=== PATIENT | female | born 1945 | race Caucasian/White ===

== ENCOUNTER 2016-11-15 14:53 | Outpatient (RCR) | payer MEDICARE, OTHER ==
[~2016-11-15 14:53] MED LIST: BPR100T PO; FEXO180T PO; GLYB2.5T4 PO; HYDROCHLORIDE PO; LORA10TA7 PO; OMEP-10 PO
[2016-11-15 15:01] LABS: BASOPHILS # (AUTO) 0.1 10^3/uL (0.0-0.1); BASOPHILS % (AUTO) 1 % (0-10); EOSINOPHILS # (AUTO) 0.1 10^3/uL (0.0-0.3); EOSINOPHILS % (AUTO) 2 % (0-10); LYMPHOCYTES # (AUTO) 1.3 X 10^3 (1.0-4.0); LYMPHOCYTES % (AUTO) 20 % (12-44); MEAN CORPUSCULAR HEMOGLOBIN 29 PG (25-34); MEAN CORPUSCULAR HGB CONC 35 G/DL (32-36); MEAN CORPUSCULAR VOLUME 84 FL (80-99); MONOCYTES # (AUTO) 0.4 X 10^3 (0.0-1.0); MONOCYTES % (AUTO) 7 % (0-12); NEUTROPHILS # (AUTO) 4.7 X 10^3 (1.8-7.8); NEUTROPHILS % (AUTO) 71 % (42-75); PLATELET COUNT 276 10^3/uL (130-400); RED BLOOD COUNT 5.15 10^6/uL (4.35-5.85); RED CELL DISTRIBUTION WIDTH 13.7 % (10.0-14.5); WHITE BLOOD COUNT 6.7 10^3/uL (4.3-11.0)
[2016-11-15 15:31] LABS: ALBUMIN 4.3 G/DL (3.2-4.5); BILIRUBIN,TOTAL 0.4 MG/DL (0.1-1.0); CALCIUM 9.6 MG/DL (8.5-10.1); CREATININE SERUM 1.02 MG/DL (0.60-1.30); TOTAL PROTEIN 6.8 G/DL (6.4-8.2)
[2016-11-15 16:56] LABS: THYROID STIMULATING HORMONE 0.6 UIU/ML (0.35-4.94)
== END 2017-02-13 | disposition home or self-care (01) ==
LOC: ONC 14:53
PROVIDERS: ATTEND Internal Medicine Hematology & Oncology
DX: C50.112 Malignant neoplasm of central portion of left female breast (principal); M85.80 Other specified disorders of bone density and structure, unspecified site; Z17.0 Estrogen receptor positive status [ER+]; Z85.72 Personal history of non-Hodgkin lymphomas; Z92.21 Personal history of antineoplastic chemotherapy; Z79.811 Long term (current) use of aromatase inhibitors; Z79.899 Other long term (current) drug therapy
CPT/HCPCS: 36415; 80053; 83615; 84443; 85025

== ENCOUNTER → 2016-12-26 | Outpatient (CLI) | payer MEDICARE, OTHER ==
--- NOTE | 2016-12-26 09:38 | Diagnostic Imaging Report ---
INDICATION: Right chest wall fullness. FINDINGS: Review of static images from a real-time exam survey of the right upper chest shows normal subcutaneous and muscular layers of the chest. There are no pathologic masses or fluid collections. IMPRESSION: Negative ultrasound of the right upper chest wall. Dictated by: Dictated on workstation # [id number]
--- NOTE | 2016-12-26 17:48 | Diagnostic Imaging Report ---
Digital mammogram bilateral screening INDICATION: Screening. This study was compared to the prior exams of 12/27/2015, 12/24/2014, and 08/27/2014. At this time, there are no current complaints. 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 The current study was also evaluated with a Computer Aided Detection (CAD) system. FINDINGS: The postsurgical changes involving the left breast seen previously are again evident and no different. There is no sign of recurrent malignancy involving the lumpectomy site in the left breast. However, in the medial aspect of the breast on the craniocaudad view, approximately 7-8 cm deep to the nipple, there is a group of faint calcific-like densities. This finding was not clearly evident on the prior exam, nor can it be identified with certainty on the MLO view of this study. It is possible that these densities could be secondary to superimposition. Even so, I would recommend that a compression/magnification view of this area be obtained in the CC projection as well as a true lateral view of the left breast for further study. If these calcific-like densities can be identified in the true lateral projection they should be magnified and compressed as well. The overall appearance of the breasts is otherwise unchanged. There are scattered fibroglandular densities in each breast, which could obscure a lesion. There is no evidence for malignancy. IMPRESSION: Additional mammographic views of the left breast would be recommended for further study. ACR BI-RADS Category 0: Incomplete. (Needs additional imaging evaluation). Result letter will be mailed to the patient. Note: At least 10% of breast cancer is not imaged by mammography. Dictated by: Dictated on workstation # [id number]
== END ==
LOC: RAD 08:59
PROVIDERS: ATTEND Nurse Practitioner Adult Health
DX: Z12.31 Encounter for screening mammogram for malignant neoplasm of breast (principal); R23.4 Changes in skin texture
CPT/HCPCS: 76604

== ENCOUNTER → 2017-01-09 | Outpatient (CLI) | payer MEDICARE, OTHER ==
--- NOTE | 2017-01-09 20:00 | Diagnostic Imaging Report ---
EXAMINATION: Left breast ultrasound. INDICATION: Calcifications in the medial aspect of the left breast. FINDINGS: The medial aspect of the left breast was scanned with no underlying abnormality. IMPRESSION: Negative study. Six months followup mammogram to reevaluate the medial left breast calcifications is recommended. ACR BI-RADS Category 3: Probably benign findings. Result letter will be mailed to the patient. Note: At least 10% of breast cancer is not imaged by mammography. Dictated by: Dictated on workstation # [id number]
--- NOTE | 2017-01-09 20:11 | Diagnostic Imaging Report ---
EXAMINATION: Left breast digital diagnostic mammogram with CAD. The current study was also evaluated with a Computer Aided Detection (CAD) system. INDICATION: Calcifications seen in the medial aspect of the left CC projection. FINDINGS: Focal compression view demonstrates faint punctate calcifications in the medial aspect of the left breast. These are somewhat difficult to see due to the small size and relatively faint calcifications. There are some adjacent vascular calcifications noted. These could be vascular; however, they are considered indeterminate. IMPRESSION: Indeterminate faint calcifications in the medial aspect of the left breast. Adjacent calcifications are seen and these could be vascular. Six-month followup mammogram would be recommended; however, an ultrasound will be performed to check for an underlying mass. ACR BI-RADS Category 0: Incomplete. (Needs additional imaging evaluation). Result letter will be mailed to the patient. Note: At least 10% of breast cancer is not imaged by mammography. Dictated by: Dictated on workstation # [id number]
== END ==
LOC: RAD 07:38
PROVIDERS: ATTEND Nurse Practitioner Adult Health
DX: R92.8 Other abnormal and inconclusive findings on diagnostic imaging of breast (principal); C50.112 Malignant neoplasm of central portion of left female breast
CPT/HCPCS: 76642

== ENCOUNTER 2017-05-16 13:03 | Outpatient (RCR) | payer MEDICARE, OTHER ==
[2017-05-16 13:48] LABS: BASOPHILS # (AUTO) 0.1 10^3/uL (0.0-0.1); BASOPHILS % (AUTO) 1 % (0-10); EOSINOPHILS # (AUTO) 0.2 10^3/uL (0.0-0.3); EOSINOPHILS % (AUTO) 3 % (0-10); LYMPHOCYTES # (AUTO) 1.3 X 10^3 (1.0-4.0); LYMPHOCYTES % (AUTO) 21 % (12-44); MEAN CORPUSCULAR HEMOGLOBIN 29 PG (25-34); MEAN CORPUSCULAR HGB CONC 34 G/DL (32-36); MEAN CORPUSCULAR VOLUME 84 FL (80-99); MEAN PLATELET VOLUME 10.7 FL (7.4-10.4); MONOCYTES # (AUTO) 0.5 X 10^3 (0.0-1.0); MONOCYTES % (AUTO) 8 % (0-12); NEUTROPHILS # (AUTO) 4.1 X 10^3 (1.8-7.8); NEUTROPHILS % (AUTO) 66 % (42-75); PLATELET COUNT 220 10^3/uL (130-400); RED BLOOD COUNT 5.26 10^6/uL (4.35-5.85); RED CELL DISTRIBUTION WIDTH 14.2 % (10.0-14.5); WHITE BLOOD COUNT 6.2 10^3/uL (4.3-11.0)
[2017-05-16 14:08] LABS: ALBUMIN 4.3 GM/DL (3.2-4.5); BILIRUBIN,TOTAL 0.5 MG/DL (0.1-1.0); CALCIUM 9.9 MG/DL (8.5-10.1); CREATININE SERUM 0.96 MG/DL (0.60-1.30); ICTERUS 0.4 (0-1.9); POTASSIUM 4.3 MMOL/L (3.6-5.0); TOTAL PROTEIN 5.8 GM/DL (6.4-8.2)
== END 2017-08-14 | disposition home or self-care (01) ==
LOC: ONC 13:03
PROVIDERS: ATTEND Internal Medicine Hematology & Oncology
DX: C50.112 Malignant neoplasm of central portion of left female breast (principal); M85.80 Other specified disorders of bone density and structure, unspecified site; Z17.0 Estrogen receptor positive status [ER+]; Z85.72 Personal history of non-Hodgkin lymphomas; Z92.21 Personal history of antineoplastic chemotherapy; Z79.811 Long term (current) use of aromatase inhibitors; Z79.899 Other long term (current) drug therapy
CPT/HCPCS: 80053; 85025; 99213

== ENCOUNTER → 2017-07-11 | Outpatient (CLI) | payer MEDICARE, OTHER ==
--- NOTE | 2017-07-11 18:21 | Diagnostic Imaging Report ---
PROCEDURE: US Thyroid. TECHNIQUE: Multiple real-time grayscale images were obtained of the thyroid in various projections. INDICATION: Enlarged thyroid. FINDINGS: The right thyroid lobe is 4.5 x 1.5 x 1.8 cm. The left lobe is 4.4 x 1.6 x 1.2 cm. There are multiple thyroid nodules seen up to 0.6 cm in the right lobe upper aspect and up to 0.6 cm in the lower lobe. IMPRESSION: Multiple subcentimeter thyroid nodules likely related to multinodular goiter. Dictated by: Dictated on workstation # [id number]
== END ==
LOC: RAD 07:55
PROVIDERS: ATTEND Nurse Practitioner Family
DX: E01.0 Iodine-deficiency related diffuse (endemic) goiter (principal)
CPT/HCPCS: 76536

== ENCOUNTER → 2017-07-11 | Outpatient (CLI) | payer MEDICARE, OTHER ==
--- NOTE | 2017-07-11 12:04 | Diagnostic Imaging Report ---
EXAMINATION: DEXA scan. INDICATION: osteopenia TECHNIQUE: Bone mineral density estimated based on dual energy radiography over the lumbar spine and femoral necks, was performed. FINDINGS: The lumbar spine T-score is -1.2. This is 0.6% decreased density measurement compared to 05/19/2015. T score over the left femoral neck is -1.6 and on the right is -2.1. This is 0.6% decreased density measurement compared to the 2015 measurements. IMPRESSION: Osteopenia. Dictated by: Dictated on workstation # [id number]
--- NOTE | 2017-07-11 20:20 | Diagnostic Imaging Report ---
Left breast diagnostic mammogram with tomography. INDICATION: Followup calcifications. The current study was also evaluated with a Computer Aided Detection (CAD) system. COMPARISON: 01/09/17. FINDINGS: Again seen are faint calcifications in the medial aspect of the left breast. They are also evaluated on tomographic views. An adjacent vessel is seen and these are favored to be vascular. There is no adverse development from prior exam. There is an area of periareolar scarring related to prior lumpectomy and post-therapeutic changes. This is stable from multiple prior exams. IMPRESSION: No adverse development in the medial left breast calcifications favored to be vascular. Reevaluation in 6 months when the patient is due for her bilateral exam is recommended. ACR BI-RADS Category 3: Probably benign findings. Result letter will be mailed to the patient. Note: At least 10% of breast cancer is not imaged by mammography. Dictated by: Dictated on workstation # [id number]
== END ==
LOC: RAD 07:49
PROVIDERS: ATTEND Nurse Practitioner Adult Health
DX: C50.112 Malignant neoplasm of central portion of left female breast (principal); N18.3 Chronic kidney disease, stage 3 (moderate); M85.9 Disorder of bone density and structure, unspecified; Z79.811 Long term (current) use of aromatase inhibitors
CPT/HCPCS: 77080

== ENCOUNTER → 2017-11-08 | Outpatient (CLI) | payer MEDICARE, OTHER ==
--- NOTE | 2017-11-08 12:00 | Diagnostic Imaging Report ---
PROCEDURE: US Thyroid. TECHNIQUE: Multiple real-time grayscale images were obtained of the thyroid in various projections. INDICATION: Followup thyroid nodules. COMPARISON: 07/11/2017. FINDINGS: The right lobe measures 4.9 x 1.4 x 1.7 cm. There are several hypoechoic solid nodules, the largest in the upper pole measuring 6 x 5 mm. The left lobe measures 4.4 x 1.4 x 1.3 cm. There are several small hypoechoic solid nodules with the largest nodule in the lower pole measuring 6 x 4 mm. There is no hypervascularity noted. IMPRESSION: Stable appearing thyroid ultrasound with subcentimeter nodules bilaterally. No change since 07/11/2017. Dictated by: Dictated on workstation # [id number]
== END ==
LOC: RAD 10:13
PROVIDERS: ATTEND Nurse Practitioner Family
DX: E04.2 Nontoxic multinodular goiter (principal)
CPT/HCPCS: 76536

== ENCOUNTER 2017-11-14 09:07 | Outpatient (RCR) | payer MEDICARE, OTHER ==
[2017-11-14 09:09] LABS: BASOPHILS # (AUTO) 0.1 10^3/uL (0.0-0.1); BASOPHILS % (AUTO) 2 % (0-10); EOSINOPHILS # (AUTO) 0.2 10^3/uL (0.0-0.3); EOSINOPHILS % (AUTO) 3 % (0-10); HEMATOCRIT 44 % (35-52); LYMPHOCYTES # (AUTO) 1.4 X 10^3 (1.0-4.0); LYMPHOCYTES % (AUTO) 23 % (12-44); MEAN CORPUSCULAR HEMOGLOBIN 29 PG (25-34); MEAN CORPUSCULAR HGB CONC 34 G/DL (32-36); MEAN CORPUSCULAR VOLUME 85 FL (80-99); MEAN PLATELET VOLUME 10.2 FL (7.4-10.4); MONOCYTES # (AUTO) 0.5 X 10^3 (0.0-1.0); MONOCYTES % (AUTO) 9 % (0-12); NEUTROPHILS # (AUTO) 3.9 X 10^3 (1.8-7.8); NEUTROPHILS % (AUTO) 64 % (42-75); PLATELET COUNT 249 10^3/uL (130-400); RED BLOOD COUNT 5.17 10^6/uL (4.35-5.85); RED CELL DISTRIBUTION WIDTH 13.4 % (10.0-14.5)
[2017-11-14 09:33] LABS: ALBUMIN 4.3 GM/DL (3.2-4.5); BILIRUBIN,TOTAL 0.5 MG/DL (0.1-1.0); CALCIUM 9.9 MG/DL (8.5-10.1); CREATININE SERUM 0.97 MG/DL (0.60-1.30); POTASSIUM 4.3 MMOL/L (3.6-5.0); TOTAL PROTEIN 7.1 GM/DL (6.4-8.2)
== END 2018-02-12 | disposition home or self-care (01) ==
LOC: ONC 09:07
PROVIDERS: ATTEND Internal Medicine Hematology & Oncology
DX: C50.112 Malignant neoplasm of central portion of left female breast (principal); M85.80 Other specified disorders of bone density and structure, unspecified site; Z17.0 Estrogen receptor positive status [ER+]; Z85.72 Personal history of non-Hodgkin lymphomas; Z92.21 Personal history of antineoplastic chemotherapy; Z79.811 Long term (current) use of aromatase inhibitors; Z79.899 Other long term (current) drug therapy
CPT/HCPCS: 36415; 80053; 83615; 85025; 99213

== ENCOUNTER → 2017-12-27 | Outpatient (CLI) | payer MEDICARE, OTHER ==
--- NOTE | 2017-12-27 19:32 | Diagnostic Imaging Report ---
INDICATION: Left breast calcifications. Patient presents for six-month followup. Correlation is made with prior mammogram from 07/11/2017, 12/26/2016, 12/27/2015. The current study was also evaluated with a Computer Aided Detection (CAD) system. FINDINGS: Post therapeutic changes in the retroareolar left breast appear stable. Subtle calcifications medial left breast posterior depth barely visible but appears stable. There is a benign nodule upper-outer right breast, stable. No new mass or malignant appearing microcalcifications are seen. There are benign calcifications in both breasts. The axillae are unremarkable. IMPRESSION: Stable bilateral mammograms with no mammographic features suspicious for malignancy are identified. Patient may return to routine annual screening mammography. ACR BI-RADS Category 2: Benign findings. Result letter will be mailed to the patient. Note: At least 10% of breast cancer is not imaged by mammography. Dictated by: Dictated on workstation # [id number]
== END ==
LOC: RAD 07:56
PROVIDERS: ATTEND Nurse Practitioner Adult Health
DX: C50.112 Malignant neoplasm of central portion of left female breast (principal)
CPT/HCPCS: 77066

== ENCOUNTER 2018-05-08 08:33 | Outpatient (RCR) | payer MEDICARE, OTHER ==
[2018-05-08 08:52] LABS: BASOPHILS % (AUTO) 0 % (0-10); EOSINOPHILS # (AUTO) 0.1 10^3/uL (0.0-0.3); EOSINOPHILS % (AUTO) 2 % (0-10); HEMATOCRIT 43 % (35-52); HEMOGLOBIN 14.7 G/DL (11.5-16.0); LYMPHOCYTES % (AUTO) 21 % (12-44); MEAN CORPUSCULAR HEMOGLOBIN 28 PG (25-34); MEAN CORPUSCULAR HGB CONC 34 G/DL (32-36); MEAN CORPUSCULAR VOLUME 84 FL (80-99); MEAN PLATELET VOLUME 10.1 FL (7.4-10.4); MONOCYTES # (AUTO) 0.4 X 10^3 (0.0-1.0); MONOCYTES % (AUTO) 9 % (0-12); NEUTROPHILS # (AUTO) 3.3 X 10^3 (1.8-7.8); NEUTROPHILS % (AUTO) 68 % (42-75); PLATELET COUNT 229 10^3/uL (130-400); RED BLOOD COUNT 5.17 10^6/uL (4.35-5.85); RED CELL DISTRIBUTION WIDTH 13.8 % (10.0-14.5); WHITE BLOOD COUNT 4.9 10^3/uL (4.3-11.0)
[2018-05-08 09:16] LABS: ALBUMIN 4.3 GM/DL (3.2-4.5); BILIRUBIN,TOTAL 0.6 MG/DL (0.1-1.0); CALCIUM 10.3 MG/DL (8.5-10.1); CREATININE SERUM 0.96 MG/DL (0.60-1.30); POTASSIUM 4.7 MMOL/L (3.6-5.0); TOTAL PROTEIN 6.9 GM/DL (6.4-8.2)
== END 2018-08-06 | disposition home or self-care (01) ==
LOC: ONC 08:33
PROVIDERS: ATTEND Internal Medicine Hematology & Oncology
DX: C50.112 Malignant neoplasm of central portion of left female breast (principal); M85.80 Other specified disorders of bone density and structure, unspecified site; Z17.0 Estrogen receptor positive status [ER+]; Z85.72 Personal history of non-Hodgkin lymphomas; Z92.21 Personal history of antineoplastic chemotherapy; Z79.811 Long term (current) use of aromatase inhibitors; Z79.899 Other long term (current) drug therapy
CPT/HCPCS: 36415; 80053; 82306; 83615; 85025; 99213

== ENCOUNTER 2018-11-06 09:09 | Outpatient (RCR) | payer MEDICARE, OTHER ==
[2018-11-06 09:14] LABS: BASOPHILS % (AUTO) 1 % (0-10); EOSINOPHILS # (AUTO) 0.2 10^3/uL (0.0-0.3); EOSINOPHILS % (AUTO) 3 % (0-10); HEMATOCRIT 44 % (35-52); HEMOGLOBIN 14.5 G/DL (11.5-16.0); LYMPHOCYTES # (AUTO) 1.1 X 10^3 (1.0-4.0); LYMPHOCYTES % (AUTO) 20 % (12-44); MEAN CORPUSCULAR HEMOGLOBIN 28 PG (25-34); MEAN CORPUSCULAR HGB CONC 33 G/DL (32-36); MEAN CORPUSCULAR VOLUME 85 FL (80-99); MEAN PLATELET VOLUME 10.2 FL (7.4-10.4); MONOCYTES # (AUTO) 0.3 X 10^3 (0.0-1.0); MONOCYTES % (AUTO) 6 % (0-12); NEUTROPHILS # (AUTO) 3.9 X 10^3 (1.8-7.8); NEUTROPHILS % (AUTO) 71 % (42-75); PLATELET COUNT 241 10^3/uL (130-400); RED CELL DISTRIBUTION WIDTH 13.8 % (10.0-14.5); WHITE BLOOD COUNT 5.5 10^3/uL (4.3-11.0)
[2018-11-06 09:36] LABS: ALANINE AMINOTRANSFERASE 19 U/L (0-55); ALBUMIN 4.4 GM/DL (3.2-4.5); ALKALINE PHOSPHATASE 101 U/L (40-136); BILIRUBIN,TOTAL 0.5 MG/DL (0.1-1.0); BUN/CREATININE RATIO 19; CALCIUM 9.9 MG/DL (8.5-10.1); CARBON DIOXIDE 26 MMOL/L (21-32); CHLORIDE 104 MMOL/L (98-107); GFR ESTIMATED > 60; GLUCOSE 190 MG/DL (70-105); POTASSIUM 4.1 MMOL/L (3.6-5.0); SODIUM 140 MMOL/L (135-145); TOTAL PROTEIN 6.7 GM/DL (6.4-8.2)
[2018-11-09] MEDS ORDERED: ONDN4T PO (20:47)
[2018-11-09] MEDS ORDERED: CYCL5TAB PO (20:47)
[2018-11-09] MEDS ORDERED: NAPR-915 PO (20:47)
[2018-11-09] MEDS ORDERED: ACHD5005 PO (20:47)
== END 2019-02-04 | disposition home or self-care (01) ==
LOC: ONC 09:09
PROVIDERS: ATTEND Internal Medicine Hematology & Oncology
DX: C50.112 Malignant neoplasm of central portion of left female breast (principal); M85.80 Other specified disorders of bone density and structure, unspecified site; Z17.0 Estrogen receptor positive status [ER+]; Z85.72 Personal history of non-Hodgkin lymphomas; Z92.21 Personal history of antineoplastic chemotherapy; Z79.811 Long term (current) use of aromatase inhibitors; Z79.899 Other long term (current) drug therapy
CPT/HCPCS: 36415; 80053; 83615; 85025; 99213

== ENCOUNTER 2018-11-09 17:25 | Emergency (ER) | payer MEDICARE, OTHER ==
[~2018-11-09] VITALS: Ht 170.2 cm; Wt 74.8 kg
[2018-11-09] MEDS ORDERED: ORPHENADRINE 60 MG/2 ML (NORFLEX) AMP IV STA (18:25)
[2018-11-09] MEDS ORDERED: KETOROLAC 30 MG/ML VIAL IVP STA (18:25)
--- NOTE | 2018-11-09 18:37 | ED Lower Extremity ---
General Chief Complaint: Lower Extremity Stated Complaint: LEFT LEG INJURY Nursing Triage Note: pt reports her left posterior knee has been sore. today as she stepped down off one step, something snapped. now pt has persistent pain. Nursing Sepsis Screen: No Definite Risk Source: patient History of Present Illness Date Seen by Provider: Nov 09, 2018 Time Seen by Provider: 18:13 Initial Comments PT ARRIVES VIA POV FROM HOME C/O PAIN TO LEFT POSTERIOR THIGH AND BEHIND LEFT KNEE FOR SEVERAL DAYS, POSSIBLY A WEEK TODAY AT 1515, SHE WAS WALKING DOWN 2 STEPS AND "FELT SOMETHING SNAP" BEHIND HER LEFT KNEE AND LEFT POSTERIOR THIGH SINCE THEN SHE HAS NOT BEEN ABLE TO BEAR WEIGHT DUE TO SEVERE PAIN NO PARESTHESIAS OR MOTOR DEFICITS NO DIRECT TRAUMA OR FALL NO PRIOR HISTORY OF SIMILAR HAS NOT TAKEN ANYTHING FOR PAIN HAS NOT SOUGHT CARE FOR THIS PROBLEM UNTIL TODAY PCP: [facility]: DR. SIU Allergies and Home Medications Allergies Coded Allergies: meperidine HCl (Unverified Allergy, Unknown, 08/29/11) Home Medications Bupropion Hcl 100 Mg Tablet, 1 TAB PO NEEDED, (Reported) Cyclobenzaprine HCl 5 Mg Tablet, 5 MG PO Q8H Prescribed by: SABA ALEXANDER on 11/09/182046 Fexofenadine Hcl 180 Mg Tablet, 1 TAB PO DAILY, (Reported) Glyburide 2.5 Mg Tablet, 1 EACH PO DAILY, (Reported) Hydrocodone Bit/Acetaminophen 1 Tab Tab, 1 EACH PO Q4H PRN for PAIN-MODERATE Prescribed by: SABA ALEXANDER on 11/09/182046 Naproxen 500 Mg Tablet, 500 MG PO BID Prescribed by: SABA ALEXANDER on 11/09/182046 Omeprazole 20 Mg Capsule.dr, 20 MG PO DAILY, (Reported) Ondansetron HCl 4 Mg Tab, 4 MG PO Q4H Prescribed by: SABA ALEXANDER on 11/09/182046 [Hydrochloride] , 10 MG PO DAILY, (Reported) EQUATE OTC Patient Home Medication List Home Medication List Reviewed: Yes Review of Systems Constitutional: no symptoms reported Respiratory: no symptoms reported Cardiovascular: no symptoms reported Gastrointestinal: no symptoms reported Musculoskeletal: see HPI Skin: no symptoms reported Psychiatric/Neurological: No Symptoms Reported Past Tsfzpto-Nblfof-Ipupfn Hx Patient Social History Alcohol Use: Denies Use Recreational Drug Use: No Smoking Status: Former Smoker (QUIT 1983) Recent Foreign Travel: No Contact w/Someone Who Travel: No Recent Infectious Disease Expo: No Recent Hopitalizations: No Immunizations Up To Date Date of Pneumonia Vaccine: Sep 18, 2013 Past Medical History Surgeries: Yes (HYST/OVARIES INTACT; LEFT BREAST LUMPECTOMY) Breast, Gallbladder, Hysterectomy, Tonsillectomy Respiratory: No Cardiac: Yes Hypertension Neurological: No Reproductive Disorders: No MA[employer]CE[employer] History: Hysterectomy, Menopausal Sexually Transmitted Disease: No Genitourinary: No Gastrointestinal: Yes Gastroesophageal Reflux Musculoskeletal: Yes (CHRONIC LEG PAIN AND RIGHT HIP PAIN) Endocrine: Yes Diabetes, Non-Insulin dep HEENT: Yes Tonsilitis, Glaucoma Cancer: Yes Breast, Lymphoma Did You Recieve Any Treatments: Yes (HAD NON-HODGKIN'S LYMPHOMA-S/P CHEMOTHERAPY; THEN HAD LEFT BREAST CANCER--TX WITH LUMPECTOMY, CHEMO AND RADIATION--FINISHED MOST TREATMENTS IN 2010--STILL ON MAINTENANCE THERAPY FOR BREAST CANCER) What Type of Treatment Did You: Chemotherapy, Radiation, Surgical Intervention Psychosocial: Yes Anxiety, Depression Integumentary: No Blood Disorders: No Physical Exam Vital Signs Vital Signs - First Documented 11/09/18 17:50 Temp 98.2 Pulse 96 Resp 14 B/P (MAP) 167/93 (117) Pulse Ox 95 O2 Delivery Room Air Capillary Refill : Less Than 3 Seconds Height, Weight, BMI Height: 5'7.00" Weight: 165lbs. oz. 74.738815fr; BMI Method:Stated General Appearance: WD/WN, no apparent distress Neck: normal inspection Cardiovascular: normal peripheral pulses, regular rate, rhythm, no edema, no JVD, no murmur Respiratory: normal breath sounds, no respiratory distress, no accessory muscle use Back: no CVA tenderness Hips: bilateral hip non-tender Legs: right leg normal inspection; left leg other (TENDERNESS AND SOME SPONGINESS TO LEFT POSTERIOR THIGH, AND TENDERNESS TO LEFT POPLITEAL AREA. NO SKIN DISCOLORATION. DISTAL MOTOR/SENSORY/VASCULAR INTACT. LIMITED ROM AT HIP AND KNEE DUE TO PAIN AND PAIN WITH WEIGHT BEARING. NO SWELLING. NO CORDING. ) Knees: right knee normal inspection; left knee other ( ABOVE) Ankles: bilateral ankle normal inspection Feet: bilateral foot normal inspection Neurologic/Tendon: normal sensation, normal motor functions, normal tendon functions Neurologic/Psychiatric: chronic care nurse II-XII nml as tested, no motor/sensory deficits, alert, oriented x 3, other (ANXIOUS) Skin: normal color, warm/dry; No ecchymosis, No rash Progress/Results/Core Measures Results/Orders Lab Results Laboratory Tests Test 11/09/18 18:45 Range/Units White Blood Count 5.9 4.3-11.0 10^3/uL Red Blood Count 5.17 4.35-5.85 10^6/uL Hemoglobin 14.8 11.5-16.0 G/DL Hematocrit 44 35-52 % Mean Corpuscular Volume 84 80-99 FL Mean Corpuscular Hemoglobin 29 25-34 PG Mean Corpuscular Hemoglobin Concent 34 32-36 G/DL Red Cell Distribution Width 13.6 10.0-14.5 % Platelet Count 244 130-400 10^3/uL Mean Platelet Volume 10.3 7.4-10.4 FL Neutrophils (%) (Auto) 73 42-75 % Lymphocytes (%) (Auto) 18 12-44 % Monocytes (%) (Auto) 8 0-12 % Eosinophils (%) (Auto) 2 0-10 % Basophils (%) (Auto) 1 0-10 % Neutrophils # (Auto) 4.3 1.8-7.8 X 10^3 Lymphocytes # (Auto) 1.0 1.0-4.0 X 10^3 Monocytes # (Auto) 0.4 0.0-1.0 X 10^3 Eosinophils # (Auto) 0.1 0.0-0.3 10^3/uL Basophils # (Auto) 0.0 0.0-0.1 10^3/uL Prothrombin Time 13.1 12.2-14.7 SEC INR Comment 1.0 0.8-1.4 Activated Partial Thromboplast Time 27 24-35 SEC Sodium Level 139 135-145 MMOL/L Potassium Level 4.1 3.6-5.0 MMOL/L Chloride Level 103 98-107 MMOL/L Carbon Dioxide Level 25 21-32 MMOL/L Anion Gap 11 5-14 MMOL/L Blood Urea Nitrogen 16 7-18 MG/DL Creatinine 0.99 0.60-1.30 MG/DL Estimat Glomerular Filtration Rate 55 BUN/Creatinine Ratio 16 Glucose Level 195 H 70-105 MG/DL Calcium Level 10.7 H 8.5-10.1 MG/DL Corrected Calcium 8.5-10.1 MG/DL Magnesium Level 2.5 H 1.8-2.4 MG/DL Total Bilirubin 0.4 0.1-1.0 MG/DL Aspartate Amino Transf (AST/SGOT) 14 5-34 U/L Alanine Aminotransferase (ALT/SGPT) 19 0-55 U/L Alkaline Phosphatase 94 40-136 U/L Total Protein 7.2 6.4-8.2 GM/DL Albumin 4.7 H 3.2-4.5 GM/DL My Orders Orders - SABA ALEXANDER DO Saline Lock/Iv-Start (11/09/18 18:25) Cbc With Automated Diff (11/09/18 18:) Comprehensive Metabolic Panel (11/09/18 18:) Magnesium (11/09/18:) Protime With Inr (11/09/18:) Partial Thromboplastin Time (11/09/18 18:25) Femur, Left, 2 Views (11/09/18 18:25) Knee, Left, 3 Views (11/09/18 18:25) Ketorolac Injection (Toradol Injection) (11/09/18 18:25) Orphenadrine Injection (Norflex Injectio (11/09/18 18:25) Ct Extremity Lower Left W (11/09/18 18:25) Iohexol Injection (Omnipaque 350 Mg/Ml 1 (11/09/18 19:15) Contrast Received (Contrast Received) (11/09/18 19:15) Sodium Chloride Flush (Catheter Flush Sy (11/09/18 19:15) Ns (Ivpb) (Sodium Chloride 0.9%) (11/09/18 19:15) Diphenhydramine Injection (Benadryl Inje (11/09/18 19:15) Diphenhydramine Injection (Benadryl Inje (11/09/18 19:09) Minh Bandage (11/09/18 20:39) Knee Immobilizer (11/09/18 20:39) Walker (11/09/18 20:39) Rx-Hydrocodone/Apap 5-325 Mg (Rx-Vicodin (11/09/18 20:45) Rx-Cyclobenzaprine Tablet (Rx-Flexeril T (11/09/18 20:39) Rx-Cyclobenzaprine Tablet (Rx-Flexeril T (11/09/18 20:41) Rx-Hydrocodone/Apap 5-325 Mg (Rx-Vicodin (11/09/18 20:41) Medications Given in ED Current Medications Medications Dose Ordered Sig/Jeffrey Route Start Time Stop Time Status Last Admin Dose Admin Acetaminophen/ Hydrocodone Bitart 1 ea Q4H PRN PO 11/09/18 20:45 11/09/18 22:01 DC 11/09/18 20:45 1 EA Diphenhydramine HCl 50 mg ONCE ONCE IVP 11/09/18 19:15 11/09/18 19:16 DC 11/09/18 19:14 50 MG Iohexol 100 ml ONCE ONCE IV 11/09/18 19:15 11/09/18 19:16 DC 11/09/18 19:29 100 ML Sodium Chloride 10 ml NEEDED PRN IV 11/09/18 19:15 11/09/18 22:01 DC 11/09/18 19:29 10 ML Sodium Chloride 250 ml ONCE ONCE IV 11/09/18 19:15 11/09/18 19:16 DC 11/09/18 19:29 80 ML Vital Signs/I&O 11/09/18 11/09/18 17:50 21:43 Temp 98.2 98.2 Pulse 96 96 Resp 14 14 B/P (MAP) 167/93 (117) 167/93 (117) Pulse Ox 95 95 O2 Delivery Room Air Blood Pressure Mean: 117 Progress Progress Note : Progress Note NO ULTRASOUND AVAILABLE HERE TONIGHT UNEVENTFUL ER STAY WHILE IN CT, PT TELLS XRAY STAFF THAT SHE MIGHT BE ALLERGIC TO IV DYE, BUT IS NOT SURE IF SHE IS OR NOT. WILL GIVE BENADRYL PRIOR TO SCAN. PT HAD NO SYMPTOMS FROM IV DYE OFFERED PAIN MEDICATIONS SEVERAL TIMES DURING ER STAY AND PT DECLINES DAUGHTER STATES SHE WILL CHECK ON PT TONIGHT, AND PT IS TO CALL HER IF SHE ANY PROBLEMS GETTING UP AND GOING TO BATHROOM, KITCHEN, ETC. DAUGHTER WILL NOT BE STAYING WITH PT TONIGHT AND DAUGHTER STATES HER HOUSE HAS TOO MANY STEPS FOR PT TO GO UP AND DOWN. Diagnostic Imaging Comments CT LEFT LOWER EXTREMITY--DEGENERATIVE CHANGES TO HIP AND KNEE, MILD GAS COLLECTION TO LATERAL COMPARTMENT--MAY BE NORMAL VACUUM PHENOMENON VS MENISCUS INJURY. NO OTHER ACUTE PROCESS, PER RADIOLOGIST REPORT @ 2024 XRAYS LEFT FEMUR AND LEFT KNEE--DEGENERATIVE CHANGES TO HIP AND KNEE, LIKELY VACUUM PHENOMENON TO LATERAL COMPARTMENT, VS MENISCUS INJURY PER RADIOLOGIST REPORTS AT 2027 Reviewed: Reviewed by Me Departure Impression Primary Impression: Left hamstring muscle strain Additional Impression: POSSIBLE MENISCUS INJURY Disposition: HOME, SELF-CARE Condition: Stable Departure-Patient Inst. Referrals: ELENA MIMS DO (PCP) Primary Care Physician JAMES BRICENO (Family) Primary Care Physician RIKI BOWMAN MD [facility]TH[facility] 4 STATES Patient Instructions: Going Up and Down Curbs or Stairs With a Walker or Crutches, Hamstring Injury, Hamstring Muscle Strain (DC), How to Use an Elastic Bandage, Knee Immobilizer (DC), Meniscal Tear (DC) Add. Discharge Instructions: MINH WRAP, KNEE IMMOBILIZER AND CRUTCHES AT ALL TIMES ICE TO AREA AT 20 MINUTE INTERVALS ELEVATE LEG MUCH POSSIBLE FOLLOW UP WITH ORTHOPEDIC SURGEON OF CHOICE IN 3-5 DAYS FOR FURTHER CARE=--CALL IN AM FOR APPOINTMENT--DR BOWMAN OR ORTHO 4 STATES All discharge instructions reviewed with patient and/or family. Voiced understanding. Scripts Naproxen (Naproxen) 500 Mg Tablet 500 MG PO BID, #20 TAB Prov: SABA ALEXANDER DO 11/09/18 Ondansetron HCl (Zofran) 4 Mg Tab 4 MG PO Q4H for Nausea/Vomiting, #10 TAB Prov: SABA ALEXANDER DO 11/09/18 Hydrocodone Bit/Acetaminophen (Hydrocodone/Acetaminophen 5/325mg Tablet) 1 Tab Tab 1 EACH PO Q4H PRN for PAIN-MODERATE MDD 10, #20 TAB Prov: SABA ALEXANDER DO 11/09/18 Cyclobenzaprine HCl (Cyclobenzaprine HCl) 5 Mg Tablet 5 MG PO Q8H for Muscle Cramps, #15 TAB Prov: SABA ALEXANDER DO 11/09/18 SABA ALEXANDER DO Nov 09, 2018 18:37
[2018-11-09 18:52] LABS: BASOPHILS % (AUTO) 1 % (0-10); EOSINOPHILS # (AUTO) 0.1 10^3/uL (0.0-0.3); EOSINOPHILS % (AUTO) 2 % (0-10); HEMATOCRIT 44 % (35-52); HEMOGLOBIN 14.8 G/DL (11.5-16.0); LYMPHOCYTES % (AUTO) 18 % (12-44); MEAN CORPUSCULAR HEMOGLOBIN 29 PG (25-34); MEAN CORPUSCULAR HGB CONC 34 G/DL (32-36); MEAN CORPUSCULAR VOLUME 84 FL (80-99); MEAN PLATELET VOLUME 10.3 FL (7.4-10.4); MONOCYTES # (AUTO) 0.4 X 10^3 (0.0-1.0); MONOCYTES % (AUTO) 8 % (0-12); NEUTROPHILS # (AUTO) 4.3 X 10^3 (1.8-7.8); NEUTROPHILS % (AUTO) 73 % (42-75); PLATELET COUNT 244 10^3/uL (130-400); RED BLOOD COUNT 5.17 10^6/uL (4.35-5.85); RED CELL DISTRIBUTION WIDTH 13.6 % (10.0-14.5); WHITE BLOOD COUNT 5.9 10^3/uL (4.3-11.0)
[2018-11-09 19:04] LABS: PROTHROMBIN TIME PATIENT 13.1 SEC (12.2-14.7)
[2018-11-09] MEDS ORDERED: diphenhydrAMINE 50 MG/ML INJ (BENADRYL) ONE (19:09)
[2018-11-09 19:12] LABS: ALANINE AMINOTRANSFERASE 19 U/L (0-55); ALBUMIN 4.7 GM/DL (3.2-4.5); ALKALINE PHOSPHATASE 94 U/L (40-136); BILIRUBIN,TOTAL 0.4 MG/DL (0.1-1.0); BUN/CREATININE RATIO 16; CALCIUM 10.7 MG/DL (8.5-10.1); CARBON DIOXIDE 25 MMOL/L (21-32); CHLORIDE 103 MMOL/L (98-107); CREATININE SERUM 0.99 MG/DL (0.60-1.30); GFR ESTIMATED 55; GLUCOSE 195 MG/DL (70-105); MAGNESIUM 2.5 MG/DL (1.8-2.4); POTASSIUM 4.1 MMOL/L (3.6-5.0); SODIUM 139 MMOL/L (135-145); TOTAL PROTEIN 7.2 GM/DL (6.4-8.2)
[2018-11-09] MEDS ORDERED: RECEIVED CONTRAST (Hold Metformin) IV SCH (19:15)
[2018-11-09] MEDS ORDERED: IOHEXOL 350 MG/ML 100 ML (OMNIPAQUE 350) VIAL IV ONE (19:15)
[2018-11-09] MEDS ORDERED: NS 250 ML (IVPB) BAG IV ONE (19:15)
[2018-11-09] MEDS ORDERED: diphenhydrAMINE 50 MG/ML INJ (BENADRYL) IVP ONE (19:15)
[2018-11-09] MEDS ORDERED: CATHETER FLUSH 10 ML SYR IV PRN (19:15)
--- NOTE | 2018-11-09 20:20 | Diagnostic Imaging Report ---
PROCEDURE: CT left lower extremity with contrast. TECHNIQUE: Multiple axial images of the left lower extremity were obtained after intravenous administration of iodinated contrast. INDICATION: Left upper leg and posterior left knee pain. COMPARISON: None. FINDINGS: No fracture or acute osseous abnormality. There is moderate degenerative change of the left hip joint, with subchondral cyst formation, marked joint space narrowing, and marginal osteophyte formation. There is also degenerative change noted in the left knee, more prominent in the medial compartment. Incidental note is made of crescentic gas in the region of the lateral compartment of the knee. The regional soft tissues are unremarkable. The visualized bowel and pelvic structures appear normal. No focal collection in the soft tissues. The vessels are patent, without evidence of occlusion or significant stenosis. IMPRESSION: No acute fracture or dislocation. Degenerative changes of the left hip and knee, as detailed above. Incidental note of gas in the lateral compartment of the left knee joint. Vacuum phenomenon is most commonly a normal variant, but has been seen in meniscal pathology. Dictated by: Dictated on workstation # [id number]
--- NOTE | 2018-11-09 20:23 | Diagnostic Imaging Report ---
Examination: AP and lateral views of the left femur, with AP left hip and lateral left knee Indication: Left lower extremity pain. Findings: No fracture or acute osseous abnormality. Bony alignment is maintained. There is moderate degenerative change of the left hip joint. No knee joint effusion. Regional soft tissues are unremarkable. IMPRESSION: No acute fracture or dislocation. Dictated by: Dictated on workstation # [id number]
--- NOTE | 2018-11-09 20:23 | Diagnostic Imaging Report ---
EXAMINATION: Left knee, 3 views. INDICATION: Posterior left knee pain. COMPARISON: None. FINDINGS: No fracture or acute osseous abnormality. Bony alignment is maintained. There is a crescentic focus of gas in the joint space of the lateral compartment. No joint effusion. IMPRESSION: No acute fracture or dislocation. Incidental note is made of vacuum phenomenon involving the lateral joint compartment. This is most commonly a normal variant but can reflect meniscal pathology. Dictated by: Dictated on workstation # [id number]
[2018-11-09] MEDS ORDERED: RX-CYCLOBENZAPRINE 10 MG (FLEXERIL) TAB PPK#3 PO STA (20:39)
[2018-11-09] MEDS ORDERED: RX-HYDROCODONE/APAP 5/325 MG #4 TAB PK PO ONE (20:41)
[2018-11-09] MEDS ORDERED: RX-CYCLOBENZAPRINE 10 MG (FLEXERIL) TAB PPK#3 PO ONE (20:41)
[2018-11-09] MEDS ORDERED: RX-HYDROCODONE/APAP 5/325 MG #4 TAB PK PO PRN (20:45)
[2018-11-09] MEDS ORDERED: ACHD5005 PO (20:47)
[2018-11-09] MEDS ORDERED: ONDN4T PO (20:47)
[2018-11-09] MEDS ORDERED: CYCL5TAB PO (20:47)
[2018-11-09] MEDS ORDERED: NAPR-915 PO (20:47)
[2018-11-09 21:43] VITALS: BP 167/93
== END 2018-11-09 21:43 | disposition home or self-care (01) ==
LOC: EDUNIT# 17:25 → ER 17:26
DX: S76.312A Strain of muscle, fascia and tendon of the posterior muscle group at thigh level, left thigh, initial encounter (principal); I10 Essential (primary) hypertension; K21.9 Gastro-esophageal reflux disease without esophagitis; E11.9 Type 2 diabetes mellitus without complications; F41.9 Anxiety disorder, unspecified; F32.9 Major depressive disorder, single episode, unspecified; Z85.3 Personal history of malignant neoplasm of breast; Z88.8 Allergy status to other drugs, medicaments and biological substances; Z85.72 Personal history of non-Hodgkin lymphomas; Z79.4 Long term (current) use of insulin; Z92.21 Personal history of antineoplastic chemotherapy; Z87.891 Personal history of nicotine dependence; Z90.710 Acquired absence of both cervix and uterus; Z90.12 Acquired absence of left breast and nipple; Z90.89 Acquired absence of other organs
CPT/HCPCS: 36415; 73552; 73562; 73701; 80053; 83735; 85025; 85610; 85730

== ENCOUNTER → 2018-11-26 | Outpatient (CLI) | payer MEDICARE, OTHER ==
[~2018-11-26] MED LIST changes: +ACHD5005 PO; +CYCL5TAB PO; +NAPR-915 PO; +ONDN4T PO
--- NOTE | 2018-11-26 16:29 | Diagnostic Imaging Report ---
INDICATION: Left medial thigh mass. FINDINGS: Survey of the soft tissues of the left posterior medial thigh does not show any pathologic mass or fluid collection or asymmetry from the opposite leg. IMPRESSION: Negative ultrasound of the left thigh. Dictated by: Dictated on workstation # [id number]
== END ==
LOC: RAD 14:47
PROVIDERS: ATTEND Registered Nurse
DX: R22.42 Localized swelling, mass and lump, left lower limb (principal)
CPT/HCPCS: 76881

== ENCOUNTER → 2018-12-29 | Outpatient (CLI) | payer MEDICARE, OTHER ==
--- NOTE | 2018-12-30 18:50 | Diagnostic Imaging Report ---
EXAMINATION: Digital mammogram bilateral screening with 3D tomosynthesis and computer-aided detection (CAD) system. INDICATION: Screening. COMPARISON: This study was compared to the prior exams of 12/27/2017, 07/11/2017, 12/26/2016, 12/27/2015, and 12/24/2014. At this time, there are no current complaints. FINDINGS: There are scattered fibroglandular densities in both breasts which could obscure a lesion. The previous study did note several calcifications in the left breast. In the interval since the prior exam, a new group of calcifications has developed in the retroareolar region of the left breast in the area of the lumpectomy site. These calcifications have a generally benign appearance and are probably related to fat necrosis. Even so, I would recommend that a compression/magnification view of the left retroareolar region be obtained in the CC and ML projections for further study. The right breast is unchanged. IMPRESSION: Additional mammographic views of the left breast would be recommended for further study. ACR BI-RADS Category 0: Incomplete. (Needs additional imaging evaluation). Result letter will be mailed to the patient. Note: At least 10% of breast cancer is not imaged by mammography. Dictated by: Dictated on workstation # [id number]
== END ==
LOC: RAD 07:14
PROVIDERS: ATTEND Nurse Practitioner Adult Health
DX: Z12.31 Encounter for screening mammogram for malignant neoplasm of breast (principal); C50.112 Malignant neoplasm of central portion of left female breast
CPT/HCPCS: 77067

== ENCOUNTER → 2019-01-08 | Outpatient (CLI) | payer MEDICARE, OTHER ==
--- NOTE | 2019-01-08 09:02 | Diagnostic Imaging Report ---
Indication: Left breast calcifications. Patient presents for additional views. Correlation is made with recent screening mammogram from 12/29/2018 as well as prior screening mammogram from 12/27/2017 and 07/11/2017. Unilateral left 2-D and 3-D diagnostic mammography was performed including 90 degree lateral view as well as magnification cc and ML views. There are benign calcifications in the left breast. The previously described new calcifications in the retroareolar portion of the left breast appear to be benign. These most likely represent calcifications of fat necrosis. No discrete mass is seen. Impression: BI-RADS category 2 Left breast retroareolar calcifications have the appearance of fat necrosis and are likely benign. Patient may return to routine annual screening mammography. ACR BI-RADS Category 2: Benign findings. Result letter will be mailed to the patient. Note: At least 10% of breast cancer is not imaged by mammography. Dictated by: Dictated on workstation # [id number]
== END ==
LOC: RAD 08:11
PROVIDERS: ATTEND Nurse Practitioner Adult Health
DX: N64.89 Other specified disorders of breast (principal); R92.8 Other abnormal and inconclusive findings on diagnostic imaging of breast

== ENCOUNTER 2019-05-05 08:59 | Outpatient (RCR) | payer MEDICARE, OTHER ==
[2019-05-05 09:14] LABS: BASOPHILS % (AUTO) 1 % (0-10); EOSINOPHILS # (AUTO) 0.1 10^3/uL (0.0-0.3); EOSINOPHILS % (AUTO) 2 % (0-10); HEMATOCRIT 43 % (35-52); HEMOGLOBIN 14.5 G/DL (11.5-16.0); LYMPHOCYTES # (AUTO) 1.1 X 10^3 (1.0-4.0); LYMPHOCYTES % (AUTO) 24 % (12-44); MEAN CORPUSCULAR HEMOGLOBIN 28 PG (25-34); MEAN CORPUSCULAR HGB CONC 34 G/DL (32-36); MEAN CORPUSCULAR VOLUME 83 FL (80-99); MEAN PLATELET VOLUME 10.6 FL (7.4-10.4); MONOCYTES # (AUTO) 0.3 X 10^3 (0.0-1.0); MONOCYTES % (AUTO) 8 % (0-12); NEUTROPHILS % (AUTO) 66 % (42-75); PLATELET COUNT 228 10^3/uL (130-400); RED CELL DISTRIBUTION WIDTH 13.9 % (10.0-14.5); WHITE BLOOD COUNT 4.5 10^3/uL (4.3-11.0)
[2019-05-05 09:34] LABS: ALBUMIN 4.4 GM/DL (3.2-4.5); BILIRUBIN,TOTAL 0.3 MG/DL (0.1-1.0); CREATININE SERUM 0.98 MG/DL (0.60-1.30); POTASSIUM 4.3 MMOL/L (3.6-5.0); TOTAL PROTEIN 6.4 GM/DL (6.4-8.2)
== END 2019-08-03 | disposition home or self-care (01) ==
LOC: ONC 08:59
PROVIDERS: ATTEND Internal Medicine Hematology & Oncology
DX: C50.112 Malignant neoplasm of central portion of left female breast (principal); M85.80 Other specified disorders of bone density and structure, unspecified site; Z17.0 Estrogen receptor positive status [ER+]; Z85.72 Personal history of non-Hodgkin lymphomas; Z92.21 Personal history of antineoplastic chemotherapy; Z79.811 Long term (current) use of aromatase inhibitors; Z79.899 Other long term (current) drug therapy
CPT/HCPCS: 36415; 80053; 83615; 85025; 99213

== ENCOUNTER → 2019-08-24 | Outpatient (CLI) | payer MEDICARE, OTHER ==
--- NOTE | 2019-08-24 13:05 | Diagnostic Imaging Report ---
PROCEDURE: US Thyroid. TECHNIQUE: Multiple real-time grayscale images were obtained of the thyroid in various projections. INDICATION: Thyroid nodules and right neck lump. COMPARISON: Correlation is made with prior thyroid ultrasound from 11/08/2017. FINDINGS: Right lobe of the thyroid measures 4.6 x 1.5 x 1.6 cm, and the left lobe measures 4.6 x 2.2 x 1.1 cm. Numerous circumscribed hypoechoic subcentimeter nodules are noted bilaterally. The largest nodule on the left is in the mid aspect measuring approximately 6 mm x 5 mm. There appears to be a colloid cyst in the upper pole of the right lobe measuring approximately 4 mm. No dominant thyroid mass is detected. Isthmus is 2 mm in thickness. Sonographic interrogation of the area of palpable lump in the right neck was also performed. No underlying abnormality is identified. No mass or fluid collection is seen. IMPRESSION: 1. Stable subcentimeter bilateral thyroid nodules. No dominant thyroid mass is detected. 2. No sonographic abnormality in the area of palpable fullness in the right neck is identified. Dictated by: Dictated on workstation # [id number]
== END ==
LOC: RAD 11:04
PROVIDERS: ATTEND Registered Nurse
DX: E04.2 Nontoxic multinodular goiter (principal)
CPT/HCPCS: 76536

== ENCOUNTER → 2019-11-04 | Outpatient (CLI) | payer MEDICARE, OTHER ==
[2019-11-04 15:08] LABS: BASOPHILS % (AUTO) 1 % (0-10); EOSINOPHILS # (AUTO) 0.2 10^3/uL (0.0-0.3); EOSINOPHILS % (AUTO) 3 % (0-10); HEMATOCRIT 44 % (35-52); HEMOGLOBIN 14.9 G/DL (11.5-16.0); LYMPHOCYTES # (AUTO) 1.3 X 10^3 (1.0-4.0); LYMPHOCYTES % (AUTO) 25 % (12-44); MEAN CORPUSCULAR HEMOGLOBIN 29 PG (25-34); MEAN CORPUSCULAR HGB CONC 34 G/DL (32-36); MEAN CORPUSCULAR VOLUME 84 FL (80-99); MEAN PLATELET VOLUME 10.4 FL (7.4-10.4); MONOCYTES # (AUTO) 0.4 X 10^3 (0.0-1.0); MONOCYTES % (AUTO) 8 % (0-12); NEUTROPHILS # (AUTO) 3.3 X 10^3 (1.8-7.8); NEUTROPHILS % (AUTO) 64 % (42-75); PLATELET COUNT 244 10^3/uL (130-400); RED CELL DISTRIBUTION WIDTH 13.6 % (10.0-14.5); WHITE BLOOD COUNT 5.2 10^3/uL (4.3-11.0)
[2019-11-04 15:32] LABS: ALANINE AMINOTRANSFERASE 10 U/L (0-55); ALBUMIN 4.6 GM/DL (3.2-4.5); ALKALINE PHOSPHATASE 115 U/L (40-136); BILIRUBIN,TOTAL 0.3 MG/DL (0.1-1.0); BUN/CREATININE RATIO 16; CALCIUM 10.1 MG/DL (8.5-10.1); CARBON DIOXIDE 27 MMOL/L (21-32); CHLORIDE 103 MMOL/L (98-107); CREATININE SERUM 0.96 MG/DL (0.60-1.30); GFR ESTIMATED 57; GLUCOSE 155 MG/DL (70-105); SODIUM 140 MMOL/L (135-145); TOTAL PROTEIN 6.9 GM/DL (6.4-8.2)
== END ==
LOC: EDSTATUS 08-04 15:18 → ONC 15:19
PROVIDERS: ATTEND Internal Medicine Hematology & Oncology
DX: C50.112 Malignant neoplasm of central portion of left female breast (principal); M85.80 Other specified disorders of bone density and structure, unspecified site; Z17.0 Estrogen receptor positive status [ER+]; Z85.72 Personal history of non-Hodgkin lymphomas; Z92.21 Personal history of antineoplastic chemotherapy; Z79.811 Long term (current) use of aromatase inhibitors; Z79.899 Other long term (current) drug therapy
CPT/HCPCS: 80053; 83615; 85025; 99213

== ENCOUNTER → 2019-11-18 | Outpatient (CLI) | payer MEDICARE, OTHER ==
[~2019-11-18] MED LIST changes: +HOLD METFORMIN - RECEIVED CONTRAST 20 ML VIAL IV SCH; +IOHEXOL 350 MG/ML 100 ML (OMNIPAQUE 350) VIAL IV ONE; +NS 100 ML (IVPB) BAG IV ONE
[2019-11-18 09:27] LABS: CREATININE SERUM 0.96 MG/DL (0.60-1.30)
--- NOTE | 2019-11-18 11:05 | Diagnostic Imaging Report ---
CLINICAL INDICATION: Patient found a lump on right side of neck. Patient has history of breast cancer and lymphoma. BB-marker placed at area of concern. Patient has past surgical history of right salivary gland removed. EXAM: Axial CT scan of the neck soft tissue performed with 75 cc of Omnipaque 350 IV contrast. COMPARISON: CT scan of the neck and chest and abdomen with contrast dated 06/18/2014. FINDINGS: There is no neck soft tissue mass, fluid collection or significant fat stranding seen beneath the BB-marker. There is no significant neck lymphadenopathy. Largest lymph node is in the left level 2A region which measures 10 mm x 5 mm. This lymph node previously measured 10 mm x 6 mm. There is a stable sized right level 2A lymph node measuring 7 mm x 5 mm which is the next biggest lymph node in the neck. Stable 7 mm x 5 mm right level 2B lymph node. The nasopharynx, oropharynx, hypopharynx, and laryngeal soft tissue structures are unremarkable. There is a 3 mm low-density nodule in the right thyroid gland which was not seen on the prior study. Surgically absent right submandibular gland is again seen. The remainder of the bilateral salivary glands are unremarkable. The visualized portions of the oral cavity, tongue, sublingual space and submandibular regions are otherwise unremarkable and stable. Neck vascular structures show no significant abnormality. Visualized upper lung allen are clear. There is cervical spine degenerative disease with straightening of the cervical spine posture. There is suggestion of diffuse disk bulges at the C4-C5, C5-C6 levels with bilateral uncinate spurs. There is severe right C4-C5 neural foramen narrowing and severe left C5-C6 neural foramen narrowing. There is moderate right C5-C6 neural foramen narrowing. There is also severe left C3-C4 neural foramen narrowing due to facet arthropathy. There is grade 1 anterolisthesis of C3 on C4. There is a moderate sized air-fluid level in the right maxillary sinus and a small air-fluid level in left maxillary sinus. There is mild peripheral mucosal thickening involving both maxillary sinuses. There is moderate secretions and mucosal thickening involving the ethmoid sinus. Mastoid air cells are clear. IMPRESSION: 1: There is no development of neck soft tissue mass, lymphadenopathy, fluid collection, or inflammatory process. There is no significant abnormality seen beneath the right neck BB marker. 2: There is a 3 mm low-density right thyroid nodule which has developed in the interim. 3: Paranasal sinusitis. 4: Cervical spine degenerative disease. Dictated by: Dictated on workstation # [id number]
== END ==
LOC: RAD 08:51
PROVIDERS: ATTEND Otolaryngology Otolaryngology/Facial Plastic Surgery
DX: E04.1 Nontoxic single thyroid nodule (principal); J32.8 Other chronic sinusitis; M47.812 Spondylosis without myelopathy or radiculopathy, cervical region; R22.1 Localized swelling, mass and lump, neck
CPT/HCPCS: 36415; 70491; 82565; 84520

== ENCOUNTER → 2019-12-22 | Outpatient (CLI) | payer MEDICARE, OTHER ==
[~2019-12-22] MED LIST changes: -HOLD METFORMIN - RECEIVED CONTRAST 20 ML VIAL IV SCH; -IOHEXOL 350 MG/ML 100 ML (OMNIPAQUE 350) VIAL IV ONE; -NS 100 ML (IVPB) BAG IV ONE
--- NOTE | 2019-12-22 09:48 | Diagnostic Imaging Report ---
INDICATION: Routine screening. COMPARISON: 12/29/2018 and 12/27/2017. TECHNIQUE: 2D and 3D bilateral screening mammography was performed with CAD. FINDINGS: Scattered fibroglandular densities are identified bilaterally. Post lumpectomy changes in the left breast are again noted. The area of fat necrosis in the outer left breast with calcifications appears stable. No new mass or malignant appearing microcalcifications are seen. The axillae are unremarkable. IMPRESSION: No mammographic features suspicious for malignancy are identified. ACR BI-RADS Category 2: Benign findings. Result letter will be mailed to the patient. Note: At least 10% of breast cancer is not imaged by mammography. Dictated by: Dictated on workstation # [id number]
--- NOTE | 2019-12-22 13:03 | Diagnostic Imaging Report ---
INDICATION: Postmenopausal state, screening for osteoporosis, history of breast cancer. COMPARISON: July 11, 2017 FINDINGS: AP Spine L1-L4: [BMD (g/cm2): 0.992] [T-Score: -1.7] [Z-Score: -0.2] [BMD Previous: 0.977] [BMD % Change: 1.5] LT Hip Neck: [BMD (g/cm2): 0.810] [T-Score: -1.6] [Z-Score: 0.2] LT Hip Total: [BMD (g/cm2):0.751] [T-Score:-2.0] [Z-Score: -0.4] [BMD Previous: 0.801] [BMD % Change: -6.2] RT Hip Neck: [BMD (g/cm2):0.864] [T-Score:-1.3] [Z-Score:0.5] RT Hip Total: [BMD (g/cm2):0.707] [T-score:-2.4] [Z-Score:-0.8] [BMD Previous:0.747] [BMD % Change:-5.4] *Indicates significant change from prior examination based on 95% confidence level. World Health Organization criteria for BMD interpretation classify patients as Normal (T-score at or above -1.0), Osteopenic (T-score between -1.0 and -2.5) or Osteoporotic (T-score at or below -2.5). LIMITATIONS AND MODIFICATION: None. FRACTURE RISK (FRAX SCORE): The ten year probability of (%): Major Osteoporotic Fracture: [11.7] Hip Fracture: [2.6] IMPRESSION: 1. Osteopenia (Low bone mass). 2. No significant change in bone mineral density since prior examination. 3. See below National Osteoporosis Foundation guidelines on when to potentially initiate pharmacologic therapy. Based on the National Osteoporosis Foundation Guidelines, pharmacologic treatment should be initiated in any of the following, unless clinical conditions suggest otherwise: * Any patient with prior fragility fracture of the hip or vertebrae. A spine fracture indicates 5X risk for subsequent spine fracture and 2X risk for subsequent hip fracture. * Osteoporosis (T-score <-2.5). * Postmenopausal women and men age 50 and older with low bone mass/osteopenia (T-score between -1.0 and -2.5) by DXA and 10-year major osteoporotic fracture greater than 20% or a 10-year probability of hip fracture greater than 3%. These fracture risks are supplied above in the FRAX score, if applicable. * Clinician judgement and/or patient preferences may indicate treatment for people with 10-year fracture probabilities above or below these levels. Dictated by: Dictated on workstation # [id number]
== END ==
LOC: RAD 08:33
PROVIDERS: ATTEND Nurse Practitioner Adult Health
DX: Z12.31 Encounter for screening mammogram for malignant neoplasm of breast (principal); Z13.820 Encounter for screening for osteoporosis; C50.112 Malignant neoplasm of central portion of left female breast; N18.3 Chronic kidney disease, stage 3 (moderate); M85.89 Other specified disorders of bone density and structure, multiple sites; Z79.811 Long term (current) use of aromatase inhibitors; Z98.890 Other specified postprocedural states; Z78.0 Asymptomatic menopausal state
CPT/HCPCS: 77067; 77080

== ENCOUNTER → 2020-05-10 | Outpatient (CLI) | payer MEDICARE, OTHER ==
[~2020-05-10] MED LIST changes: +DENOSUMAB 60 MG/1 ML (PROLIA) CANCER CTR SQ SCH
[2020-05-10 08:56] LABS: BASOPHILS # (AUTO) 0.1 10^3/uL (0.0-0.1); BASOPHILS % (AUTO) 1 % (0-10); EOSINOPHILS # (AUTO) 0.1 10^3/uL (0.0-0.3); EOSINOPHILS % (AUTO) 2 % (0-10); HEMATOCRIT 43 % (35-52); HEMOGLOBIN 14.7 G/DL (11.5-16.0); LYMPHOCYTES # (AUTO) 1.1 X 10^3 (1.0-4.0); LYMPHOCYTES % (AUTO) 24 % (12-44); MEAN CORPUSCULAR HEMOGLOBIN 29 PG (25-34); MEAN CORPUSCULAR HGB CONC 34 G/DL (32-36); MEAN CORPUSCULAR VOLUME 85 FL (80-99); MEAN PLATELET VOLUME 10.4 FL (7.4-10.4); MONOCYTES # (AUTO) 0.4 X 10^3 (0.0-1.0); MONOCYTES % (AUTO) 9 % (0-12); NEUTROPHILS % (AUTO) 64 % (42-75); PLATELET COUNT 228 10^3/uL (130-400); RED CELL DISTRIBUTION WIDTH 14.1 % (10.0-14.5); WHITE BLOOD COUNT 4.7 10^3/uL (4.3-11.0)
[2020-05-10 09:18] LABS: ALBUMIN 4.3 GM/DL (3.2-4.5); BILIRUBIN,TOTAL 0.5 MG/DL (0.1-1.0); CALCIUM 9.8 MG/DL (8.5-10.1); CREATININE SERUM 0.99 MG/DL (0.60-1.30); POTASSIUM 4.5 MMOL/L (3.6-5.0); TOTAL PROTEIN 6.7 GM/DL (6.4-8.2)
== END ==
LOC: ONC 08:40
PROVIDERS: ATTEND Internal Medicine Hematology & Oncology
DX: C85.90 Non-Hodgkin lymphoma, unspecified, unspecified site (principal); C50.112 Malignant neoplasm of central portion of left female breast; M85.89 Other specified disorders of bone density and structure, multiple sites; Z79.811 Long term (current) use of aromatase inhibitors
CPT/HCPCS: 80053; 82306; 83615; 85025; 96372

== ENCOUNTER 2020-07-27 14:48 | Outpatient (RCR) | payer MEDICARE, OTHER ==
[~2020-07-27 14:48] MED LIST changes: -DENOSUMAB 60 MG/1 ML (PROLIA) CANCER CTR SQ SCH
== END 2020-10-25 | disposition home or self-care (01) ==
LOC: ONC 14:48
PROVIDERS: ATTEND Internal Medicine Hematology & Oncology
DX: C50.112 Malignant neoplasm of central portion of left female breast (principal); R22.30 Localized swelling, mass and lump, unspecified upper limb; Z85.3 Personal history of malignant neoplasm of breast
CPT/HCPCS: 99213

== ENCOUNTER → 2020-08-02 | Outpatient (CLI) | payer MEDICARE, OTHER ==
--- NOTE | 2020-08-02 15:12 | Diagnostic Imaging Report ---
INDICATION: Left axillary lump with history of breast cancer and lymphoma. TECHNIQUE: Targeted ultrasound of the left axilla was performed. FINDINGS: There is a well-circumscribed somewhat heterogeneous mass in the left axilla measuring 2.6 cm. This is, however, of similar echogenicity to surrounding subcutaneous tissue. No other discrete solid or cystic mass is appreciated. IMPRESSION: Well-circumscribed mass within the subcutaneous fat of the left axilla. While this likely reflects a lipoma in light of the patient's history of lymphoma and breast cancer, evaluation with an ultrasound-guided biopsy is recommended to ensure benignity. ACR BI-RADS Category 4: Suspicious abnormality. Dictated by: Dictated on workstation # [id number]
== END ==
LOC: RAD 11:55
PROVIDERS: ATTEND Nurse Practitioner Adult Health
DX: R22.32 Localized swelling, mass and lump, left upper limb (principal); Z85.3 Personal history of malignant neoplasm of breast
CPT/HCPCS: 76642

== ENCOUNTER → 2020-08-12 | Outpatient (CLI) | payer MEDICARE, OTHER ==
[~2020-08-12] VITALS: Ht 170.2 cm; Wt 70.5 kg
[~2020-08-12] MED LIST changes: +LIDOCAINE 1% INJ 20 ML 20 ML VIAL INJ ONE; +LIDOCAINE 1% INJ 20 ML 20 ML VIAL ONE
--- NOTE | 2020-08-12 10:26 | Diagnostic Imaging Report ---
INDICATION: Superficial mass in the region of the left axilla/left upper arm. Patient presents for biopsy. The patient was brought to the procedure and placed on the table in the supine position. Ultrasound imaging of the left axillary region was performed to evaluate appropriate entry site. The skin was prepped and draped in the usual sterile fashion. A small amount of 1% lidocaine was utilized for local anesthesia. A total of 3 core biopsies were made of the superficial, circumscribed ovoid isoechoic mass utilizing a 14-gauge Achieve core biopsy needle. Hemostasis was obtained using manual compression. Patient tolerated the procedure well and left the department in stable condition. IMPRESSION: Successful ultrasound guided core biopsy of left axillary nodule. Pathology results are currently pending. Dictated by: Dictated on workstation # [id number]
== END ==
LOC: RAD 07:47
PROVIDERS: ATTEND Nurse Practitioner Adult Health
DX: N60.22 Fibroadenosis of left breast (principal); Z85.3 Personal history of malignant neoplasm of breast
CPT/HCPCS: 19083

== ENCOUNTER → 2020-11-22 | Outpatient (CLI) | payer MEDICARE, OTHER ==
[~2020-11-22] MED LIST changes: +DENOSUMAB 60 MG/1 ML (PROLIA) CANCER CTR SQ SCH; -LIDOCAINE 1% INJ 20 ML 20 ML VIAL INJ ONE; -LIDOCAINE 1% INJ 20 ML 20 ML VIAL ONE
== END ==
LOC: ONC 13:17
PROVIDERS: ATTEND Internal Medicine Hematology & Oncology
DX: C50.112 Malignant neoplasm of central portion of left female breast (principal); C82.90 Follicular lymphoma, unspecified, unspecified site; Z78.0 Asymptomatic menopausal state; Z79.811 Long term (current) use of aromatase inhibitors
CPT/HCPCS: 96372; G0463

== ENCOUNTER → 2020-11-29 | Outpatient (CLI) | payer MEDICARE, OTHER ==
[~2020-11-29] MED LIST changes: +CATHETER FLUSH 10 ML SYR IV PRN; -DENOSUMAB 60 MG/1 ML (PROLIA) CANCER CTR SQ SCH; +HOLD METFORMIN - RECEIVED CONTRAST 20 ML VIAL IV SCH; +IOHEXOL 350 MG/ML 100 ML (OMNIPAQUE 350) VIAL IV ONE; +NS 100 ML (IVPB) BAG IV ONE
[2020-11-29] MEDS: CATHETER FLUSH 10 ML SYR IV PRN ×2 (10:50→13:15)
--- NOTE | 2020-11-29 13:51 | Diagnostic Imaging Report ---
PROCEDURE: CT chest, abdomen, and pelvis with and without contrast. TECHNIQUE: Precontrast images were obtained of the chest, abdomen, and pelvis. Multiple contiguous axial images were obtained through the chest, abdomen, and pelvis after administration of intravenous contrast. Auto Exposure Controls were utilized during the CT exam to meet ALARA standards for radiation dose reduction. INDICATION: History of left breast carcinoma. Patient does have back pain on the left side. COMPARISON: Correlation is made with prior CT chest and abdomen from 06/18/2014. FINDINGS: CT CHEST: No axillary lymphadenopathy is detected. No mediastinal or hilar lymphadenopathy is detected. No pericardial or pleural fluid is identified. Parenchymal evaluation demonstrates a tiny nodule in the medial right upper lobe measuring 4 mm. Additional nodule in the right upper lobe more inferiorly measures 4 mm and is stable. Tiny subpleural nodule in the left lower lobe is stable. No infiltrates are seen. IMPRESSION: Stable pulmonary micronodules when compared with exam from 2014. CT chest is otherwise unremarkable. CT ABDOMEN AND PELVIS: Liver contains a tiny low density in the dome, too small to characterize but likely a cyst. No other masses are seen. Gallbladder is surgically absent. No biliary ductal dilatation is identified. Pancreas and spleen are unremarkable. No adrenal mass is identified. Kidneys are unremarkable. Aorta is nonaneurysmal. No central retroperitoneal or mesenteric lymphadenopathy is detected. Small and large bowel loops are normal in caliber. There is no obstruction. There is no free fluid or fluid collection. No pelvic lymphadenopathy is identified. Bladder is decompressed. Uterus appears to be surgically absent. Bony structures are unremarkable. IMPRESSION: Essentially unremarkable CT of the abdomen and pelvis. No abdominal or pelvic lymphadenopathy is seen. No acute process is identified. Dictated by: Dictated on workstation # [id number]
--- NOTE | 2020-11-29 14:25 | Diagnostic Imaging Report ---
INDICATION: Follicular lymphoma. TECHNIQUE: The patient was administered 26.5 mCi of technetium 99m MDP intravenously and whole-body imaging was performed after a three-hour delay. COMPARISON: Correlation is made with the prior whole body bone scan from 06/01/2016. FINDINGS: Normal-appearing uptake of activity by the axial and appendicular skeleton is noted. There is uptake by the kidneys with excretion into the urinary bladder. Abnormal activity involving bilateral hip joints is seen, slightly greater on the right. This is similar to the prior exam. No other suspicious foci of uptake is seen. There are some degenerative changes in the cervical spine. IMPRESSION: Bilateral hip uptake, similar to the examination from 2016. There is no scintigraphic evidence of osseous metastatic disease. Dictated by: Dictated on workstation # [id number]
== END ==
LOC: CARD 10:35
PROVIDERS: ATTEND Nurse Practitioner Adult Health
DX: C82.90 Follicular lymphoma, unspecified, unspecified site (principal); R91.8 Other nonspecific abnormal finding of lung field; Z78.0 Asymptomatic menopausal state; Z79.811 Long term (current) use of aromatase inhibitors
CPT/HCPCS: 71270; 74178; 78306; A9503

== ENCOUNTER → 2020-12-23 | Outpatient (CLI) | payer MEDICARE, OTHER ==
[~2020-12-23] MED LIST changes: -CATHETER FLUSH 10 ML SYR IV PRN; -HOLD METFORMIN - RECEIVED CONTRAST 20 ML VIAL IV SCH; -IOHEXOL 350 MG/ML 100 ML (OMNIPAQUE 350) VIAL IV ONE; -NS 100 ML (IVPB) BAG IV ONE
--- NOTE | 2020-12-23 12:32 | Diagnostic Imaging Report ---
Indication: Routine screening. Comparison is made prior mammogram from 12/22/2019 and 12/29/2018. 2-D and 3-D bilateral screening mammography was performed with CAD. Scattered fibroglandular densities are identified bilaterally. A circumscribed nodule in the outer right breast is stable consistent with parenchymal lymph node. Therapeutic changes left breast appear to be stable. There are benign calcifications bilaterally. No mass or malignant appearing microcalcifications are seen. Axillae are unremarkable. IMPRESSION: BI-RADS Category 2 No mammographic features suspicious for malignancy are identified. ACR BI-RADS Category 2: Benign findings. Result letter will be mailed to the patient. Note: At least 10% of breast cancer is not imaged by mammography. Dictated by: Dictated on workstation # [id number]
== END ==
LOC: RAD 09:38
PROVIDERS: ATTEND Nurse Practitioner Adult Health
DX: Z12.31 Encounter for screening mammogram for malignant neoplasm of breast (principal)
CPT/HCPCS: 77063; 77067

== ENCOUNTER → 2021-05-16 | Outpatient (CLI) | payer MEDICARE, OTHER ==
[2021-05-16 13:22] LABS: BASOPHILS # (AUTO) 0.1 10^3/uL (0.0-0.1); BASOPHILS % (AUTO) 1 % (0-10); EOSINOPHILS # (AUTO) 0.1 10^3/uL (0.0-0.3); EOSINOPHILS % (AUTO) 2 % (0-10); HEMATOCRIT 45 % (35-52); HEMOGLOBIN 15.3 g/dL (11.5-16.0); LYMPHOCYTES % (AUTO) 18 % (12-44); MEAN CORPUSCULAR HEMOGLOBIN 29 pg (25-34); MEAN CORPUSCULAR HGB CONC 34 g/dL (32-36); MEAN CORPUSCULAR VOLUME 86 fL (80-99); MEAN PLATELET VOLUME 10.1 fL (9.0-12.2); MONOCYTES # (AUTO) 0.5 10^3/uL (0.0-1.0); MONOCYTES % (AUTO) 8 % (0-12); NEUTROPHILS % (AUTO) 70 % (42-75); PLATELET COUNT 230 10^3/uL (130-400); WHITE BLOOD COUNT 5.7 10^3/uL (4.3-11.0)
[2021-05-16 13:46] LABS: ALBUMIN 4.2 GM/DL (3.2-4.5); BILIRUBIN,TOTAL 0.3 MG/DL (0.1-1.0); CALCIUM 9.7 MG/DL (8.5-10.1); CREATININE SERUM 1.14 MG/DL (0.60-1.30); TOTAL PROTEIN 7.1 GM/DL (6.4-8.2)
== END ==
LOC: ONC 13:08
PROVIDERS: ATTEND Internal Medicine Hematology & Oncology
DX: C50.112 Malignant neoplasm of central portion of left female breast (principal); M85.80 Other specified disorders of bone density and structure, unspecified site; E11.69 Type 2 diabetes mellitus with other specified complication; E11.22 Type 2 diabetes mellitus with diabetic chronic kidney disease; N18.30 Chronic kidney disease, stage 3 unspecified; Z90.12 Acquired absence of left breast and nipple; F32.9 Major depressive disorder, single episode, unspecified; Z98.890 Other specified postprocedural states; Z92.21 Personal history of antineoplastic chemotherapy; Z92.3 Personal history of irradiation; Z79.811 Long term (current) use of aromatase inhibitors; Z85.72 Personal history of non-Hodgkin lymphomas
CPT/HCPCS: 80053; 83615; 85025; G0463; 99213

== ENCOUNTER 2021-11-05 13:23 | Emergency (ER) | payer MEDICARE, OTHER ==
[~2021-11-05] VITALS: Ht 170 cm; Wt 61.0 kg
[2021-11-05 14:06] LABS: BASOPHILS # (AUTO) 0.1 10^3/uL (0.0-0.1); BASOPHILS % (AUTO) 1 % (0-10); EOSINOPHILS # (AUTO) 0.1 10^3/uL (0.0-0.3); EOSINOPHILS % (AUTO) 1 % (0-10); HEMATOCRIT 49 % (35-52); HEMOGLOBIN 16.1 g/dL (11.5-16.0); LYMPHOCYTES # (AUTO) 0.8 10^3/uL (1.0-4.0); LYMPHOCYTES % (AUTO) 8 % (12-44); MEAN CORPUSCULAR HEMOGLOBIN 28 pg (25-34); MEAN CORPUSCULAR HGB CONC 33 g/dL (32-36); MEAN CORPUSCULAR VOLUME 85 fL (80-99); MEAN PLATELET VOLUME 9.8 fL (9.0-12.2); MONOCYTES # (AUTO) 0.7 10^3/uL (0.0-1.0); MONOCYTES % (AUTO) 7 % (0-12); NEUTROPHILS # (AUTO) 7.6 10^3/uL (1.8-7.8); NEUTROPHILS % (AUTO) 83 % (42-75); PLATELET COUNT 322 10^3/uL (130-400); WHITE BLOOD COUNT 9.2 10^3/uL (4.3-11.0)
[2021-11-05 14:09] LABS: ALBUMIN 4.4 GM/DL (3.2-4.5)
[2021-11-05 14:10] LABS: POTASSIUM 4.2 MMOL/L (3.6-5.0)
[2021-11-05 14:11] LABS: CALCIUM 10.7 MG/DL (8.5-10.1)
[2021-11-05 14:12] LABS: TOTAL PROTEIN 7.5 GM/DL (6.4-8.2)
[2021-11-05 14:14] LABS: BILIRUBIN,TOTAL 0.7 MG/DL (0.1-1.0)
[2021-11-05 14:16] LABS: CREATININE SERUM 1.18 MG/DL (0.60-1.30)
[2021-11-05 14:28] LABS: CLARITY,URINE SL CLOUDY; COLOR,URINE YELLOW; GLUCOSE, URINE (UA) NEGATIVE (NEGATIVE); KETONES,URINE 2+ (NEGATIVE); LEUKOCYTE ESTERASE ,URINE NEGATIVE (NEGATIVE); NITRITE,URINE NEGATIVE (NEGATIVE); PH,URINE 5.5 (5-9); PROTEIN,URINE TRACE (NEGATIVE)
[2021-11-05 14:40] LABS: BACTERIA,URINE TRACE /HPF; BILIRUBIN,URINE 2+ (NEGATIVE)
[2021-11-05] MEDS ORDERED: NS IV 1000 ML 1,000 ML IV SCH (14:45)
[2021-11-05] MEDS ORDERED: IOHEXOL 350 MG/ML 100 ML (OMNIPAQUE 350) VIAL IV ONE (15:30)
[2021-11-05] MEDS ORDERED: NS 100 ML (IVPB) BAG IV ONE (15:30)
[2021-11-05] MEDS ORDERED: HOLD METFORMIN - RECEIVED CONTRAST 20 ML VIAL IV SCH (15:30)
[2021-11-05] MEDS ORDERED: fentaNYL INJ 100 MCG/2 ML AMP IVP ONE (15:30)
--- NOTE | 2021-11-05 16:11 | Diagnostic Imaging Report ---
PROCEDURE: CT chest, abdomen and pelvis without contrast. TECHNIQUE: Multiple contiguous axial images were obtained through the chest, abdomen, and pelvis without the use of intravenous contrast. Auto Exposure Controls were utilized during the CT exam to meet ALARA standards for radiation dose reduction. DATE: November 05, 2021. INDICATION: 75-year-old female, chest and abdominal pain. COMPARISON: CT chest, abdomen and pelvis November 29, 2020. FINDINGS: There is a 2 mm left lower lobe pulmonary nodule on axial image 41. There is no additional identified pulmonary nodule. There is no lung mass. There is no additional focal airspace consolidation. There is no pneumothorax. There is no pleural effusion. The central airways are patent. The heart is not enlarged. There is no pericardial effusion. There is no identified abnormally enlarged mediastinal or axillary lymph node meeting CT size criteria for adenopathy. The liver is unremarkable in size and contour. The gallbladder is surgically absent. There is no intrahepatic or extrahepatic bile duct dilation. The main pancreatic duct is not abnormally dilated. Limited noncontrast assessment of the pancreatic parenchyma is unremarkable. The spleen is normal in size. The adrenal glands are unremarkable. Limited noncontrast assessment of the renal parenchyma is unremarkable. The urinary collecting systems are not distended. The urinary bladder is underdistended and not well evaluated. The uterus is not seen and may be surgically absent. There are fluid-filled mildly distended segments of small bowel measuring approximately 3.1 cm in diameter. There are no distended segments of large bowel. There is no free intraperitoneal air. There is no drainable fluid collection. There is no sizable volume free pelvic fluid. The appendix is not well seen. There is no identified secondary finding to specifically suggest acute appendicitis. There are atherosclerotic calcifications. There is no identified abnormally enlarged lymph node in the abdomen or pelvis meeting CT size criteria for adenopathy. 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 There are multilevel degenerative changes of the spine. There are compression fractures of T11 and T12 with visible fracture lines which are very likely acute in age. There is approximately 30% height loss of T12 and 35% height loss of T11. There is no identified retropulsed fracture fragment. There is no visualized fracture involvement of the posterior elements. IMPRESSION: 1. Acute appearing compression type fractures of T11 and T12 as described above. There is no identified fracture involvement of the posterior elements. 2. Dilated fluid filled segments of small bowel without clearly identified transition point. This potentially could reflect ileus. 3. No identified acute cardiopulmonary abnormality. Dictated by: Dictated on workstation # [id number]
[2021-11-05] MEDS ORDERED: HYOSCYAMINE 0.125 MG (LEVSIN) TAB SL ONE (17:30)
[2021-11-05] MEDS ORDERED: ONDANSETRON 4 MG/2 ML (SDV) Z0FRAN IVP ONE (17:30)
[2021-11-05] MEDS ORDERED: HYOS0.1283 SL (18:41)
[2021-11-05] MEDS ORDERED: ONDA4TAB11 SL (18:41)
--- NOTE | 2021-11-05 18:41 | ED Abdominal Pain ---
General Chief Complaint: Abdominal/GI Problems Stated Complaint: R SIDE/BACK PAIN/CONSTIPATION Nursing Triage Note: PT AMB TO ROOM 4 PT CO OF SEVERE R SIDED ABD PAIN RADIATES TO BACK, WAS CONSTIPATED BUT HAS TAKEN MIRLAX AND MAG CITRATE AND HAS HAD BM YEST AND TODAY. PT R SIDE IS TENDER TO TOUCH, RATES PAIN 9/10. PT STATES HAD BACK INJURY A COUPLE WEEKS AGO. Source of Information: Patient Exam Limitations: No Limitations History of Present Illness Date Seen by Provider: Nov 05, 2021 Time Seen by Provider: 13:36 Initial Comments Mrs. Mccann is a 75-year-old woman who presents to the emergency room with complaints of right sided abdominal pain that radiates around through her lower thoracic and upper lumbar region. She had a back injury a few weeks ago and states imaging done previously showed a vertebral compression. She has had some constipation recently and took MiraLAX and magnesium citrate. She did have bowel movements yesterday and today. Abdomen is tender to the touch around the right flank. No nausea, vomiting, diarrhea, or fevers. She states bearing down to have bowel movements causes pain does do certain movements. She has a prior history of lymphoma and breast cancer. Catherine Cochran is her primary care provider. Allergies and Home Medications Allergies Coded Allergies: meperidine HCl (Unverified Allergy, Unknown, 08/29/11) Patient Home Medication List Home Medication List Reviewed: Yes Bupropion Hcl (Wellbutrin) 100 Mg Tablet, 1 TAB PO NEEDED, (Reported) Entered as Reported by: PEDRO LUIS CERDA on 08/24/11 1210 Cyclobenzaprine HCl (Cyclobenzaprine HCl) 5 Mg Tablet, 5 MG PO Q8H Prescribed by: SABA ALEXANDER on 11/09/182046 Fexofenadine Hcl (Mirian) 180 Mg Tablet, 1 TAB PO DAILY, (Reported) Entered as Reported by: KATHY MCDONOUGH on 08/29/11 0844 Glyburide (Glyburide) 2.5 Mg Tablet, 1 EACH PO DAILY, (Reported) Entered as Reported by: PEDRO LUIS CERDA on 08/24/11 1210 Hydrocodone Bit/Acetaminophen (Lortab 5 Mg Tablet) 1 Tab Tab, 1 EACH PO Q4H PRN for PAIN-MODERATE Prescribed by: SABA ALEXANDER on 11/09/182046 Hyoscyamine Sulfate (Levsin-Sl) 0.125 Mg Tab.subl, 0.125 MG SL Q4H PRN for CRAMPS Prescribed by: CINDY BAGLEY on 11/05/211840 Naproxen (Naproxen) 500 Mg Tablet, 500 MG PO BID Prescribed by: SABA ALEXANDER on 11/09/182046 Omeprazole (Prilosec 20 Mg) 20 Mg Capsule.dr, 20 MG PO DAILY, (Reported) Entered as Reported by: PEDRO LUIS CERDA on 08/24/11 1210 Ondansetron (Ondansetron Odt) 4 Mg Tab.rapdis, 4 MG SL Q4H PRN for NAUSEA/VOMITING Prescribed by: CINDY BAGLEY on 11/05/211840 Ondansetron HCl (Zofran) 4 Mg Tab, 4 MG PO Q4H Prescribed by: SABA ALEXANDER on 11/09/182046 [Hydrochloride] , 10 MG PO DAILY, (Reported) Entered as Reported by: PEDRO LUIS CERDA on 08/24/11 1210 Review of Systems Review of Systems Constitutional: no symptoms reported EENTM: No Symptoms Reported Respiratory: No Symptoms Reported Cardiovascular: No Symptoms Reported Gastrointestinal: See HPI Genitourinary: No Symptoms Reported Musculoskeletal: no symptoms reported Skin: no symptoms reported Psychiatric/Neurological: No Symptoms Reported Endocrine: No Symptoms Reported Hematologic/Lymphatic: No Symptoms Reported Past Bqyjapv-Yymkjw-Ignpal Hx Patient Social History Tobacco Use?: No Substance use?: No Alcohol Use?: No Pt feels they are or have been: No Immunizations Up To Date Second COVID19 Vaccination Jose: MODERNA X2 FIRST OF YEAR Past Medical History Surgeries: Yes (HYST/OVARIES INTACT; LEFT BREAST LUMPECTOMY) Breast, Gallbladder, Hysterectomy, Tonsillectomy Respiratory: No Cardiac: Yes Hypertension Neurological: No Reproductive Disorders: No [employer] History: Hysterectomy, Menopausal Sexually Transmitted Disease: No Genitourinary: No Gastrointestinal: Yes Gastroesophageal Reflux Musculoskeletal: Yes (CHRONIC LEG PAIN AND RIGHT HIP PAIN) Endocrine: Yes Diabetes, Non-Insulin dep HEENT: Yes Tonsilitis, Glaucoma Cancer: Yes Breast, Lymphoma Did You Recieve Any Treatments: Yes What Type of Treatment Did You: Chemotherapy, Radiation, Surgical Intervention Psychosocial: Yes Anxiety, Depression Integumentary: No Blood Disorders: No Physical Exam Vital Signs Vital Signs - First Documented 11/05/21 13:42 Temp 36.8 Pulse 102 Resp 20 B/P (MAP) 153/92 (112) Pulse Ox 96 Capillary Refill : Less Than 3 Seconds Height/Weight/BMI Height: 5'7.00" Weight: 165lbs. oz. [id number]; 21.00 BMI Method:Stated General Appearance: WD/WN, mild distress HEENT: PERRL/EOMI, normal ENT inspection Neck: normal inspection Respiratory: lungs clear, normal breath sounds, no respiratory distress Cardiovascular: regular rate, rhythm, no edema, no murmur Gastrointestinal: normal bowel sounds, soft, tenderness (Tenderness around the mid right flank); No hernia, No mass Extremities: normal inspection, no pedal edema Back: normal inspection, vertebral tenderness (Upper lumbar and lower thoracic spine) Neurologic/Psychiatric: folder machine II-XII nml as tested, no motor/sensory deficits, alert, normal mood/affect, oriented x 3 Skin: normal color, warm/dry, other (No tenderness to light palpation of the affected area) Progress/Results/Core Measures Results/Orders Lab Results Laboratory Tests Test 11/05/21 13:55 11/05/21 14:23 11/05/21 17:43 Range/Units White Blood Count 9.2 4.3-11.0 10^3/uL Red Blood Count 5.72 H 3.80-5.11 10^6/uL Hemoglobin 16.1 H 11.5-16.0 g/dL Hematocrit 49 35-52 % Mean Corpuscular Volume 85 80-99 fL Mean Corpuscular Hemoglobin 28 25-34 pg Mean Corpuscular Hemoglobin Concent 33 32-36 g/dL Red Cell Distribution Width 13.5 10.0-14.5 % Platelet Count 322 130-400 10^3/uL Mean Platelet Volume 9.8 9.0-12.2 fL Immature Granulocyte % (Auto) 0 % Neutrophils (%) (Auto) 83 H 42-75 % Lymphocytes (%) (Auto) 8 L 12-44 % Monocytes (%) (Auto) 7 0-12 % Eosinophils (%) (Auto) 1 0-10 % Basophils (%) (Auto) 1 0-10 % Neutrophils # (Auto) 7.6 1.8-7.8 10^3/uL Lymphocytes # (Auto) 0.8 L 1.0-4.0 10^3/uL Monocytes # (Auto) 0.7 0.0-1.0 10^3/uL Eosinophils # (Auto) 0.1 0.0-0.3 10^3/uL Basophils # (Auto) 0.1 0.0-0.1 10^3/uL Immature Granulocyte # (Auto) 0.0 0.0-0.1 10^3/uL Sodium Level 138 135-145 MMOL/L Potassium Level 4.2 3.6-5.0 MMOL/L Chloride Level 100 98-107 MMOL/L Carbon Dioxide Level 23 21-32 MMOL/L Anion Gap 15 H 5-14 MMOL/L Blood Urea Nitrogen 19 H 7-18 MG/DL Creatinine 1.18 0.60-1.30 MG/DL Estimat Glomerular Filtration Rate 45 BUN/Creatinine Ratio 16 Glucose Level 174 H 70-105 MG/DL Calcium Level 10.7 H 8.5-10.1 MG/DL Corrected Calcium 10.4 H 8.5-10.1 MG/DL Total Bilirubin 0.7 0.1-1.0 MG/DL Aspartate Amino Transf (AST/SGOT) 17 5-34 U/L Alanine Aminotransferase (ALT/SGPT) 26 0-55 U/L Alkaline Phosphatase 136 40-136 U/L C-Reactive Protein High Sensitivity 0.35 0.00-0.50 MG/DL Total Protein 7.5 6.4-8.2 GM/DL Albumin 4.4 3.2-4.5 GM/DL Lipase 22 8-78 U/L Urine Color YELLOW Urine Clarity SL CLOUDY Urine pH 5.5 5-9 Urine Specific [place] >=1.030 1.016-1.022 Urine Protein TRACE H NEGATIVE Urine Glucose (UA) NEGATIVE NEGATIVE Urine Ketones 2+ H NEGATIVE Urine Nitrite NEGATIVE NEGATIVE Urine Bilirubin 2+ H NEGATIVE Urine Urobilinogen 0.2 < = 1.0 MG/DL Urine Leukocyte Esterase NEGATIVE NEGATIVE Urine RBC (Auto) NEGATIVE NEGATIVE Urine RBC NONE /HPF Urine WBC 2-5 /HPF Urine Squamous Epithelial Cells 2-5 /HPF Urine Crystals NONE /LPF Urine Bacteria TRACE /HPF Urine Casts PRESENT /LPF Urine Hyaline Casts 10-25 H /LPF Urine Mucus MODERATE H /LPF Urine Culture Indicated NO Glucometer 121 H 70-110 MG/DL My Orders Orders - CINDY MOSCOSO MD Ed Iv/Invasive Line Start (11/05/21 13:36) Cbc With Automated Diff (11/05/21 13:36) Comprehensive Metabolic Panel (11/05/21 13:36) Hs C Reactive Protein (11/05/21 13:36) Lipase (11/05/21 13:36) Ua Culture If Indicated (11/05/21 13:36) Ns Iv 1000 Ml (Sodium Chloride 0.9%) (11/05/21 14:45) Fentanyl Inj (Sublimaze Injection) (11/05/21 15:30) Ct Chest/Abdomen/Pelvis Wo (11/05/21 15:22) Iohexol Injection (Omnipaque 350 Mg/Ml 1 (11/05/21 15:30) Received Contrast (Hold Metformin- Contr (11/05/21 15:30) Ns (Ivpb) (Sodium Chloride 0.9% Ivpb Bag (11/05/21 15:30) Hyoscyamine Sl Tablet (Levsin Sl Tablet) (11/05/21 17:30) Ondansetron Injection (Zofran Injectio (11/05/21 17:30) Medications Given in ED Vital Signs/I&O 11/05/21 11/05/21 13:42 19:03 Temp 36.8 Pulse 102 88 Resp 20 20 B/P (MAP) 153/92 (112) 140/88 Pulse Ox 96 96 Blood Pressure Mean: 112 FSBG Bedside Testing Finger Stick Blood Glucose: 121 Progress Progress Note : Progress Note Patient was hydrated with a liter of IV normal saline. Pain was initially treated with fentanyl. CT was obtained. Compression fracture was noted at T11 and T12. These did appear acute. There was fluid-filled small bowel which could represent ileus versus enteritis. Patient had some rebound cramping pain and nausea. This was treated with Levsin and Zofran with success. It is unclear whether the compression fractures could be related to pain in the abdomen of a radicular nature. I have recommended that the patient follow-up to have an outpatient MRI ordered. She declined opioid pain medications or tramadol. Diagnostic Imaging Diagonstic Imaging: CT Plain Films/CT/US/NM/MRI: abdomen, pelvis Comments CT scan reviewed by me and report reviewed. See report below: NAME: LYNDON MCCANN [facility] REC#: [id number] PT STATUS: REG ER : 1945 PHYSICIAN: CINDY MOSCOSO MD ADMIT DATE: 11/05/21/ER Signed Date of Exam:11/05/21 CT CHEST/ABDOMEN/PELVIS WO PROCEDURE: CT chest, abdomen and pelvis without contrast. TECHNIQUE: Multiple contiguous axial images were obtained through the chest, abdomen, and pelvis without the use of intravenous contrast. Auto Exposure Controls were utilized during the CT exam to meet ALARA standards for radiation dose reduction. DATE: November 05, 2021. INDICATION: 75-year-old female, chest and abdominal pain. COMPARISON: CT chest, abdomen and pelvis November 29, 2020. FINDINGS: There is a 2 mm left lower lobe pulmonary nodule on axial image 41. There is no additional identified pulmonary nodule. There is no lung mass. There is no additional focal airspace consolidation. There is no pneumothorax. There is no pleural effusion. The central airways are patent. The heart is not enlarged. There is no pericardial effusion. There is no identified abnormally enlarged mediastinal or axillary lymph node meeting CT size criteria for adenopathy. The liver is unremarkable in size and contour. The gallbladder is surgically absent. There is no intrahepatic or extrahepatic bile duct dilation. The main pancreatic duct is not abnormally dilated. Limited noncontrast assessment of the pancreatic parenchyma is unremarkable. The spleen is normal in size. The adrenal glands are unremarkable. Limited noncontrast assessment of the renal parenchyma is unremarkable. The urinary collecting systems are not distended. The urinary bladder is underdistended and not well evaluated. The uterus is not seen and may be surgically absent. There are fluid-filled mildly distended segments of small bowel measuring approximately 3.1 cm in diameter. There are no distended segments of large bowel. There is no free intraperitoneal air. There is no drainable fluid collection. There is no sizable volume free pelvic fluid. The appendix is not well seen. There is no identified secondary finding to specifically suggest acute appendicitis. There are atherosclerotic calcifications. There is no identified abnormally enlarged lymph node in the abdomen or pelvis meeting CT size criteria for adenopathy. 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 There are multilevel degenerative changes of the spine. There are compression fractures of T11 and T12 with visible fracture lines which are very likely acute in age. There is approximately 30% height loss of T12 and 35% height loss of T11. There is no identified retropulsed fracture fragment. There is no visualized fracture involvement of the posterior elements. IMPRESSION: 1. Acute appearing compression type fractures of T11 and T12 as described above. There is no identified fracture involvement of the posterior elements. 2. Dilated fluid filled segments of small bowel without clearly identified transition point. This potentially could reflect ileus. 3. No identified acute cardiopulmonary abnormality. Dictated by: Dictated on workstation # [id number] Dict: 11/05/21 1601 Trans: 11/05/21 1631 [facility] [id number] Interpreted by: MELISSA NAGEL MD Electronically signed by: MELISSA NAGEL MD 11/05/21 1631 Departure Impression Primary Impression: Right flank pain Additional Impressions: Compression fracture of T11 vertebra Qualified Codes: S22.080A - Wedge compression fracture of T11-T12 vertebra, initial encounter for closed fracture Compression fracture of T12 vertebra Qualified Codes: S22.080A - Wedge compression fracture of T11-T12 vertebra, initial encounter for closed fracture Intestinal cramps Disposition: 01 HOME, SELF-CARE Condition: Improved Departure-Patient Inst. Decision time for Depature: 18:38 Referrals: [facility] [place] Primary Care Physician CATHERINE COCHRAN (Family) Primary Care Physician Patient Instructions: Vertebral Compression Fracture Add. Discharge Instructions: Drink plenty of clear liquids to stay well-hydrated. Gradually advance your diet with small quantities of bland food as tolerated. You may use Levsin as prescribed for abdominal cramp.. Use the Zofran as prescribed for nausea and vomiting. Please follow-up with the clinic tomorrow by calling in the morning. Consider pursuing MRI as ordered through the clinic for further evaluation of your compression fractures. Based on MRI results, there may be therapies to treat your fractures such as kyphoplasty. It is possible that the right sided flank pain and bowel issues you are experiencing are at least in part related to your compression fractures. There may be irritation of the nerve roots exiting the spine at that level causing your pain. Call with questions or concerns. Return to the ER if you have worsening symptoms. All discharge instructions reviewed with patient and/or family. Voiced understanding. Scripts Ondansetron (Ondansetron Odt) 4 Mg Tab.rapdis 4 MG SL Q4H PRN for NAUSEA/VOMITING, #10 TAB Prov: CINDY MOSCOSO MD 11/05/21 Hyoscyamine Sulfate (Levsin-Sl) 0.125 Mg Tab.subl 0.125 MG SL Q4H PRN for CRAMPS, #10 TAB 0 Refills Prov: CINDY MOSCOSO MD 11/05/21 Work/School Note: Work Release Form Date Seen in the Emergency Department: Nov 05, 2021 Return to Work: Nov 06, 2021 Other Restrictions Listed Below: May need adjusted duty or time off if pain prohibits work. Restrictions: Length of time off and adjustment will be variable based on pain. Copy Copies To 1: ELENA MIMS JOSHUA T MD Nov 05, 2021 18:41
[2021-11-05 19:03] VITALS: BP 140/88
== END 2021-11-05 19:05 | disposition home or self-care (01) ==
LOC: EDUNIT# 13:23 → ER 13:25
DX: S22.080A Wedge compression fracture of T11-T12 vertebra, initial encounter for closed fracture (principal); R10.9 Unspecified abdominal pain; R11.0 Nausea; I10 Essential (primary) hypertension; E11.9 Type 2 diabetes mellitus without complications; F41.9 Anxiety disorder, unspecified; F32.9 Major depressive disorder, single episode, unspecified; K21.9 Gastro-esophageal reflux disease without esophagitis; Z79.899 Other long term (current) drug therapy; X58.XXXA Exposure to other specified factors, initial encounter
CPT/HCPCS: 36415; 71250; 74176; 80053; 81000; 82947; 83690; 85025; 86141

== ENCOUNTER → 2021-11-15 | Outpatient (CLI) | payer MEDICARE, OTHER ==
[~2021-11-15] MED LIST changes: +HYOS0.1283 SL; +ONDA4TAB11 SL
[2021-11-15 09:06] LABS: BASOPHILS % (AUTO) 1 % (0-10); EOSINOPHILS # (AUTO) 0.1 10^3/uL (0.0-0.3); EOSINOPHILS % (AUTO) 1 % (0-10); HEMATOCRIT 45 % (35-52); HEMOGLOBIN 14.3 g/dL (11.5-16.0); LYMPHOCYTES # (AUTO) 0.8 10^3/uL (1.0-4.0); LYMPHOCYTES % (AUTO) 11 % (12-44); MEAN CORPUSCULAR HEMOGLOBIN 28 pg (25-34); MEAN CORPUSCULAR HGB CONC 32 g/dL (32-36); MEAN CORPUSCULAR VOLUME 88 fL (80-99); MEAN PLATELET VOLUME 9.6 fL (9.0-12.2); MONOCYTES # (AUTO) 0.6 10^3/uL (0.0-1.0); MONOCYTES % (AUTO) 8 % (0-12); NEUTROPHILS # (AUTO) 5.6 10^3/uL (1.8-7.8); NEUTROPHILS % (AUTO) 79 % (42-75); PLATELET COUNT 291 10^3/uL (130-400); WHITE BLOOD COUNT 7.1 10^3/uL (4.3-11.0)
[2021-11-15 09:31] LABS: BILIRUBIN,TOTAL 0.5 MG/DL (0.1-1.0); CREATININE SERUM 1.09 MG/DL (0.60-1.30); POTASSIUM 4.1 MMOL/L (3.6-5.0); TOTAL PROTEIN 6.6 GM/DL (6.4-8.2)
== END ==
LOC: ONC 08:53
PROVIDERS: ATTEND Internal Medicine Hematology & Oncology
DX: C50.112 Malignant neoplasm of central portion of left female breast (principal); C82.90 Follicular lymphoma, unspecified, unspecified site; M85.80 Other specified disorders of bone density and structure, unspecified site; E11.9 Type 2 diabetes mellitus without complications; E66.9 Obesity, unspecified; Z90.12 Acquired absence of left breast and nipple; Z92.21 Personal history of antineoplastic chemotherapy; Z79.811 Long term (current) use of aromatase inhibitors
CPT/HCPCS: 80053; 85025; G0463; 99213

== ENCOUNTER → 2021-11-30 | Outpatient (CLI) | payer MEDICARE, OTHER ==
--- NOTE | 2021-11-30 12:16 | Diagnostic Imaging Report ---
PROCEDURE: MRI lumbar spine. TECHNIQUE: Multiplanar, multisequence MRI of the lumbar spine was performed without contrast. INDICATION: Back pain. FINDINGS: There are no prior MRI examinations available for comparison. The CT chest, abdomen, and pelvis exam performed on 11/05/2021 however did note an acute-appearing compression fractures of T11 and T12. On the T1 parasagittal images of this exam, there is a 70-80% compression fracture of T11. There is abnormal signal throughout much of the anterior half of the vertebral body. This appearance would be consistent with an acute or subacute compression deformity. There is also a 60-70% compression deformity involving the inferior endplate of T12 and this too is felt to be subacute in nature. In addition, there is diffusely altered signal throughout the vertebral body of L2. This does suggest an acute/subacute compression fracture as well. There is only mild loss of height of L2. There is no other abnormal signal arising from the osseous structures to indicate bone edema or fracture. There is no sign of a retropulsed fragment at T11, T12, or L2. At the L3-L4 level, there is slight retrolisthesis of L3 with respect to L4. There is also disc bulge centrally which narrows the AP diameter of the thecal sac to 6.6 mm. There is mild neuroforaminal narrowing bilaterally at this level as well. At the L4-L5 level, the AP diameter of the thecal sac is 9 mm. There is also neuroforaminal narrowing at this level, particularly on the left and there may be encroachment of the exiting left nerve root at this level. There is no abnormal signal arising from the cord. There is no sign of a paraspinal mass. IMPRESSION: 1. There are subacute compression deformities of T11 and T12 and an acute/subacute compression deformity of L2. Kyphoplasty should be considered. 2. There is no acute bony abnormality noted, otherwise. 3. There is degenerative disc and bony disease at L3-L4, L4-L5, and L5-S1. There is spinal stenosis at both L3-L4 and L4-L5 and there is narrowing of the neuroforamen on the left at L5-S1. There may be encroachment of the exiting left nerve root at L5-S1. Dictated by: Dictated on workstation # [id number]
== END ==
LOC: RAD 10:15
PROVIDERS: ATTEND Physician Assistant
DX: M43.8X4 Other specified deforming dorsopathies, thoracic region (principal); M43.8X6 Other specified deforming dorsopathies, lumbar region; M51.36 Other intervertebral disc degeneration, lumbar region; M51.37 Other intervertebral disc degeneration, lumbosacral region; M48.061 Spinal stenosis, lumbar region without neurogenic claudication; M48.07 Spinal stenosis, lumbosacral region
CPT/HCPCS: 72148

== ENCOUNTER 2022-11-26 14:25 | Emergency (ER) | payer MEDICARE, OTHER ==
[~2022-11-26] VITALS: Ht 165 cm; Wt 61.2 kg
--- NOTE | 2022-11-26 15:09 | ED Abdominal Pain ---
General Chief Complaint: Back Problems Stated Complaint: LT SIDE MID BACK PAIN Nursing Triage Note: PT REPORTS WITH C/O BACK PAIN X'S 4 DAYS. DENIES DYSURIA. PT REPORTS MID BACK PAIN THAT TRAVELS AROUND HER LEFT SIDE. LAST BM TODAY, REPORTS NORMAL. PT AMB. TO TRIAGE WITHOUT DIFFICULTY. SPOUSE AT BEDSIDE. Source of Information: Patient Exam Limitations: No Limitations History of Present Illness Date Seen by Provider: Nov 26, 2022 Time Seen by Provider: 14:55 Initial Comments 76-year-old female presents emerged department today for left flank pain that radiates into her left lower abdomen. Symptoms started 4 days ago and have been persistent, slightly worsening today. She has been intermittently nauseated but no vomiting. No fevers or chills. No changes in her bowels with last bowel movement this morning. No urinary symptoms. No vaginal symptoms. She is never had similar pains in the past. Describes sharp stabbing without obvious a ggravating or alleviating factors. It is moderate in intensity. No new activities or known injuries. No chest pain. Allergies and Home Medications Allergies Coded Allergies: meperidine HCl (Unverified Allergy, Unknown, 08/29/11) Patient Home Medication List Home Medication List Reviewed: Yes Bupropion Hcl (Wellbutrin) 100 Mg Tablet, 1 TAB PO NEEDED, (Reported) Entered as Reported by: PEDRO LUIS CERDA on 08/24/11 1210 Cyclobenzaprine HCl (Cyclobenzaprine HCl) 5 Mg Tablet, 5 MG PO Q8H Prescribed by: SABA ALEXANDER on 11/09/182046 Fexofenadine Hcl (Mirian) 180 Mg Tablet, 1 TAB PO DAILY, (Reported) Entered as Reported by: KATHY MCDONOUGH on 08/29/11 0844 Glyburide (Glyburide) 2.5 Mg Tablet, 1 EACH PO DAILY, (Reported) Entered as Reported by: PEDRO LUIS CERDA on 08/24/11 1210 Hydrocodone Bit/Acetaminophen (Lortab 5 Mg Tablet) 1 Tab Tab, 1 EACH PO Q4H PRN for PAIN-MODERATE Prescribed by: SABA ALEXANDER on 11/09/182046 Hyoscyamine Sulfate (Levsin-Sl) 0.125 Mg Tab.subl, 0.125 MG SL Q4H PRN for [employer] Prescribed by: CINDY BAGLEY on 11/05/211840 Naproxen (Naproxen) 500 Mg Tablet, 500 MG PO BID Prescribed by: SABA ALEXANDER on 11/09/182046 Omeprazole (Prilosec 20 Mg) 20 Mg Capsule.dr, 20 MG PO DAILY, (Reported) Entered as Reported by: PEDRO LUIS CERDA on 08/24/11 121 Ondansetron (Ondansetron Odt) 4 Mg Tab.rapdis, 4 MG SL Q4H PRN for NAUSEA/VOMITING Prescribed by: CINDY BAGLEY on 11/05/211840 Ondansetron HCl (Zofran) 4 Mg Tab, 4 MG PO Q4H Prescribed by: SABA ALEXANDER on 11/09/182046 [Hydrochloride] , 10 MG PO DAILY, (Reported) Entered as Reported by: PEDRO LUIS CERDA on 08/24/11 121 Review of Systems Review of Systems Constitutional: no symptoms reported EENTM: No Symptoms Reported Respiratory: No Symptoms Reported Cardiovascular: No Symptoms Reported Gastrointestinal: Abdominal Pain, Nausea Genitourinary: Flank Pain Musculoskeletal: no symptoms reported Skin: no symptoms reported Psychiatric/Neurological: No Symptoms Reported Endocrine: No Symptoms Reported Hematologic/Lymphatic: No Symptoms Reported Past Ouabtok-Caesly-Zzuqdb Hx Patient Social History Tobacco Use?: No Substance use?: No Alcohol Use?: No Pt feels they are or have been: No Immunizations Up To Date Influenza Vaccine Up-to-Date: Yes; Up-to-Date First/Initial COVID19 Vaccinat: MODERNA X2 FIRST OF YEAR Second COVID19 Vaccination Jose: MODERN X2 FIRST OF YEAR Third COVID19 Vaccination Date: MODERN X2 FIRST OF YEAR Past Medical History Surgery/Hospitalization HX: PMH;HTN, DM2, BREAST CANCER, NON-HODGKINS LYMPH. SURGERY;PARTIAL HYST., TONSILS, SALIVARY GLAND ON RT SIDE, NECK SURGERIES, LEISONS ON ROOF OF MOUTH. BACK SURGERY FOR COMPRESSION FX 01/2022. 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 History: Hysterectomy, Menopausal Sexually Transmitted Disease: No Genitourinary: No Gastrointestinal: Yes Gastroesophageal Reflux Musculoskeletal: Yes (CHRONIC LEG PAIN AND RIGHT HIP PAIN) Endocrine: Yes Diabetes, Non-Insulin dep HEENT: Yes Tonsilitis, Glaucoma Cancer: Yes Breast, Lymphoma Did You Recieve Any Treatments: Yes What Type of Treatment Did You: Chemotherapy, Radiation, Surgical Intervention Psychosocial: Yes Anxiety, Depression Integumentary: No Blood Disorders: No Family Medical History Reviewed Nursing Family Hx No Pertinent Family Hx Physical Exam Vital Signs Vital Signs - First Documented 11/26/22 14:40 Temp 35.9 Pulse 92 Resp 18 B/P (MAP) 154/86 (108) Pulse Ox 99 O2 Delivery Room Air Capillary Refill : Less Than 3 Seconds Height/Weight/BMI Height: 5'7.00" Weight: 165lbs. oz. 74.575214tc; 22.00 BMI Method:Stated General Appearance: WD/WN, no apparent distress HEENT: normal ENT inspection, pharynx normal Neck: non-tender, supple, normal inspection Respiratory: chest non-tender, lungs clear, normal breath sounds, no respiratory distress, no accessory muscle use Cardiovascular: regular rate, rhythm, no edema, no gallop, no JVD, no murmur Gastrointestinal: normal bowel sounds, non tender, soft, no organomegaly, no pulsatile mass Extremities: normal range of motion, non-tender, normal inspection, no pedal edema, no calf tenderness, normal capillary refill Back: normal inspection, no vertebral tenderness, CVA tenderness (L) Neurologic/Psychiatric: alert, normal mood/affect, oriented x 3 Skin: normal color, warm/dry Lymphatic: no adenopathy Progress/Results/Core Measures Results/Orders Lab Results Laboratory Tests Test 11/26/22 14:55 11/26/22 15:15 Range/Units Urine Color YELLOW Urine Clarity CLEAR Urine pH 6.0 5-9 Urine Specific [place] 1.025 H 1.016-1.022 Urine Protein NEGATIVE NEGATIVE Urine Glucose (UA) NEGATIVE NEGATIVE Urine Ketones 1+ H NEGATIVE Urine Nitrite NEGATIVE NEGATIVE Urine Bilirubin NEGATIVE NEGATIVE Urine Urobilinogen 1.0 < = 1.0 MG/DL Urine Leukocyte Esterase NEGATIVE NEGATIVE Urine RBC (Auto) NEGATIVE NEGATIVE Urine RBC NONE /HPF Urine WBC NONE /HPF Urine Squamous Epithelial Cells 0-2 /HPF Urine Crystals NONE /LPF Urine Bacteria NEGATIVE /HPF Urine Casts NONE /LPF Urine Mucus NEGATIVE /LPF Urine Culture Indicated NO White Blood Count 5.9 4.3-11.0 10^3/uL Red Blood Count 6.06 H 3.80-5.11 10^6/uL Hemoglobin 17.0 H 11.5-16.0 g/dL Hematocrit 51 35-52 % Mean Corpuscular Volume 85 80-99 fL Mean Corpuscular Hemoglobin 28 25-34 pg Mean Corpuscular Hemoglobin Concent 33 32-36 g/dL Red Cell Distribution Width 13.1 10.0-14.5 % Platelet Count 282 130-400 10^3/uL Mean Platelet Volume 9.5 9.0-12.2 fL Immature Granulocyte % (Auto) 2 % Neutrophils (%) (Auto) 73 42-75 % Lymphocytes (%) (Auto) 16 12-44 % Monocytes (%) (Auto) 7 0-12 % Eosinophils (%) (Auto) 1 0-10 % Basophils (%) (Auto) 1 0-10 % Neutrophils # (Auto) 4.3 1.8-7.8 10^3/uL Lymphocytes # (Auto) 0.9 L 1.0-4.0 10^3/uL Monocytes # (Auto) 0.4 0.0-1.0 10^3/uL Eosinophils # (Auto) 0.1 0.0-0.3 10^3/uL Basophils # (Auto) 0.0 0.0-0.1 10^3/uL Immature Granulocyte # (Auto) 0.1 0.0-0.1 10^3/uL Sodium Level 136 135-145 MMOL/L Potassium Level 4.0 3.6-5.0 MMOL/L Chloride Level 100 98-107 MMOL/L Carbon Dioxide Level 27 21-32 MMOL/L Anion Gap 9 5-14 MMOL/L Blood Urea Nitrogen 15 7-18 MG/DL Creatinine 0.90 0.60-1.30 MG/DL Estimat Glomerular Filtration Rate 66 BUN/Creatinine Ratio 17 Glucose Level 127 H 70-105 MG/DL Calcium Level 10.5 H 8.5-10.1 MG/DL Corrected Calcium 8.5-10.1 MG/DL Total Bilirubin 0.7 0.1-1.0 MG/DL Aspartate Amino Transf (AST/SGOT) 15 5-34 U/L Alanine Aminotransferase (ALT/SGPT) 16 0-55 U/L Alkaline Phosphatase 94 40-136 U/L Total Protein 7.8 6.4-8.2 GM/DL Albumin 4.8 H 3.2-4.5 GM/DL My Orders Orders - PORTIA LAURA DO Ct Abd/Pelvis Wo(Kidney Stone) (11/26/22 15:06) Comprehensive Metabolic Panel (11/26/22 15:06) Cbc With Automated Diff (11/26/22 15:06) Ua Culture If Indicated (11/26/22 15:06) Vital Signs/I&O 11/26/22 14:40 Temp 35.9 Pulse 92 Resp 18 B/P (MAP) 154/86 (108) Pulse Ox 99 O2 Delivery Room Air Blood Pressure Mean: 108 Departure Communication (Admissions) Patient is hemodynamically stable with no red flag symptoms on exam. CT scan is negative for any kidney stone, aortic pathology, bowel pathology. No evidence for diverticulitis. Visualized portion of the lungs are negative. She is not tachycardic, tachypneic and I think this low likelihood to be PE. No evidence for pneumothorax or pneumonia. She declines any stronger pain medicines as she states she is severely sensitive to them. She will continue to take Tylenol at home. She is discharged in stable condition. I think this is likely musculoskeletal pain at this time. Impression Primary Impression: Acute left flank pain Disposition: HOME, SELF-CARE Condition: Stable Departure-Patient Inst. Referrals: [facility]/ (PCP) Primary Care Physician CATHERINE STEPHENSON (Family) Primary Care Physician Patient Instructions: Flank Pain Add. Discharge Instructions: You have opted out of any stronger pain medicine. Please continue to take your Tylenol at home. You should your symptoms persist past the next 48 hours I re commend you follow-up with your primary doctor for further evaluation and treatment recommendations. If your symptoms become severe I recommend you return to the emergency department immediately. If you develop any shortness of breath you should also return. All discharge instructions reviewed with patient and/or family. Voiced understanding. PORTIA LAURA DO Nov 26, 2022 15:09
[2022-11-26 15:21] LABS: BASOPHILS % (AUTO) 1 % (0-10); EOSINOPHILS # (AUTO) 0.1 10^3/uL (0.0-0.3); EOSINOPHILS % (AUTO) 1 % (0-10); HEMATOCRIT 51 % (35-52); LYMPHOCYTES # (AUTO) 0.9 10^3/uL (1.0-4.0); LYMPHOCYTES % (AUTO) 16 % (12-44); MEAN CORPUSCULAR HEMOGLOBIN 28 pg (25-34); MEAN CORPUSCULAR HGB CONC 33 g/dL (32-36); MEAN CORPUSCULAR VOLUME 85 fL (80-99); MEAN PLATELET VOLUME 9.5 fL (9.0-12.2); MONOCYTES # (AUTO) 0.4 10^3/uL (0.0-1.0); MONOCYTES % (AUTO) 7 % (0-12); NEUTROPHILS # (AUTO) 4.3 10^3/uL (1.8-7.8); NEUTROPHILS % (AUTO) 73 % (42-75); PLATELET COUNT 282 10^3/uL (130-400); WHITE BLOOD COUNT 5.9 10^3/uL (4.3-11.0)
[2022-11-26 15:29] LABS: ALBUMIN 4.8 GM/DL (3.2-4.5); CHLORIDE 100 MMOL/L (98-107); SODIUM 136 MMOL/L (135-145)
[2022-11-26 15:30] LABS: CALCIUM 10.5 MG/DL (8.5-10.1)
[2022-11-26 15:31] LABS: GLUCOSE 127 MG/DL (70-105); TOTAL PROTEIN 7.8 GM/DL (6.4-8.2)
[2022-11-26 15:32] LABS: CARBON DIOXIDE 27 MMOL/L (21-32)
[2022-11-26 15:33] LABS: BILIRUBIN,TOTAL 0.7 MG/DL (0.1-1.0)
[2022-11-26 15:35] LABS: ALKALINE PHOSPHATASE 94 U/L (40-136); GFR ESTIMATED 66
[2022-11-26 15:36] LABS: BUN/CREATININE RATIO 17
[2022-11-26 15:38] LABS: BILIRUBIN,URINE NEGATIVE (NEGATIVE); CLARITY,URINE CLEAR; COLOR,URINE YELLOW; GLUCOSE, URINE (UA) NEGATIVE (NEGATIVE); KETONES,URINE 1+ (NEGATIVE); LEUKOCYTE ESTERASE ,URINE NEGATIVE (NEGATIVE); NITRITE,URINE NEGATIVE (NEGATIVE); PROTEIN,URINE NEGATIVE (NEGATIVE)
[2022-11-26 15:38] LABS: ALANINE AMINOTRANSFERASE 16 U/L (0-55)
[2022-11-26 15:47] LABS: BACTERIA,URINE NEGATIVE /HPF; SQUAMOUS EPITHELIAL CELL,UR 0-2 /HPF
--- NOTE | 2022-11-26 15:51 | Diagnostic Imaging Report ---
PROCEDURE: CT urinary tract, rule out kidney stone. TECHNIQUE: Multiple contiguous axial images were obtained through the abdomen and pelvis without the use of intravenous contrast. Auto Exposure Controls were utilized during the CT exam to meet ALARA standards for radiation dose reduction. INDICATION: Left flank pain COMPARISON: 11/05/2021. FINDINGS: The visualized lung bases are clear. Cholecystectomy. The unenhanced liver and spleen are unremarkable. The adrenal glands are unremarkable. The unenhanced pancreas is unremarkable. The bilateral kidneys and ureters are unremarkable. Moderate vascular calcifications without aneurysmal dilatation of the abdominal aorta. The urinary bladder is decompressed, therefore not well evaluated. The uterus is not visualized, likely surgically absent. No abnormal adnexal mass lesion. The appendix is unremarkable. No bowel obstruction or pneumatosis. No significant adenopathy, free air, or free fluid within the abdomen or pelvis. Mural thickening of the stomach. Vertebroplasty changes are identified within L4, L1, T12, and T11. Mild superior endplate compression deformity of L2 is identified, appearing slightly worsened since the prior examination one year prior. 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 Scattered osseous degenerative changes. IMPRESSION: Mild superior endplate compression deformity and irregularity, worsened since the prior CT examination one year prior. Recommend correlation for pain as this is an age indeterminate change since the exam one year prior. Nuclear Medicine bone scan or MRI could help to evaluate chronicity of this compression deformity. Mural thickening of the stomach, which may relate to poor distention versus gastritis. Additional postsurgical and chronic findings, as above. Dictated by: Dictated on workstation # [id number]
[2022-11-26 16:28] VITALS: BP 143/68
== END 2022-11-26 16:29 | disposition home or self-care (01) ==
LOC: EDUNIT# 14:25 → ER 14:27
DX: R10.9 Unspecified abdominal pain (principal)
CPT/HCPCS: 36415; 74176; 80053; 81000; 85025